=== PATIENT | male | born 1950 | race Caucasian/White ===

== ENCOUNTER 2016-12-25 07:45 | Inpatient (IN) | payer MEDICAID, MEDICARE, OTHER ==
[2016-12-25] VITALS (11 sets, daily range): BP systolic 106–143; BP diastolic 64–92
[~2016-12-25] VITALS: Ht 175.3 cm; Wt 75.3 kg
[~2016-12-25 07:45] MED LIST: ATOR20TA PO; DIPH25CA83 PO; ESCI20TA37 PO; FOLI1TAB16 PO; FURO40TA5 PO; GABA-534 PO; METO-302 PO; TAMS0.4C34 PO; WARF5TAB8 PO
[2016-12-25] MEDS ORDERED: METOPROLOL TARTRATE 5 MG/5 ML VIAL IVP ONE ×4 (08:00→09:20)
[2016-12-25] MEDS ORDERED: IV NORMAL SALINE 1000 ML BAG IV ONE (08:00)
[2016-12-25 08:23] LABS: EOSINOPHILS # (AUTO) 0.1 K/uL (0.0-0.7); EOSINOPHILS % (AUTO) 0.9 % (0.0-7.0); HEMATOCRIT 26.4 % (40-50); HEMOGLOBIN 8.8 G/DL (14.0-18.0); LYMPHOCYTES % (AUTO) 10.6 % (20.5-51.5); MEAN CORPUSCULAR HEMOGLOBIN 34.4 UUG (27.0-31.0); MEAN CORPUSCULAR HGB CONC 33 g/dL (32.0-37.0); MEAN CORPUSCULAR VOLUME 103.7 FL (82.0-92.0); MONOCYTES # (AUTO) 0.5 K/UL (0.1-1.30); MONOCYTES % (AUTO) 5.4 % (0.0-11.0); NEUTROPHILS # (AUTO) 7.7 K/UL (1.8-8.9); NEUTROPHILS % (AUTO) 83.1 % (38.5-71.5); PLATELET COUNT (AUTO) 158 K/UL (150-450); RED BLOOD CELL COUNT(AUTO) 2.55 MIL/UL (4.7-6.1); RED CELL DISTRIBUTION WIDTH 19.6 % (11.5-14.5); WHITE BLOOD COUNT (AUTO) 9.3 K/UL (4.0-11.2)
--- NOTE | 2016-12-25 08:30 | NUR ---
Pt and his partner who is at bedside refused I&O cath for urine specimen, pt attempted to void in urinal but was unable at this time.
--- NOTE | 2016-12-25 08:30 | NUR ---
PT AND PARTNER UNABLE TO REMEMBER MEDICATIONS AND DOSAGES. PARTNER STATES HE WILL CALL BACK LATER WITH MED LIST.
[2016-12-25 08:36] LABS: CALCIUM 8.6 mg/dL (8.5-10.1); POTASSIUM 4.1 mmol/L (3.5-5.1)
[2016-12-25 08:46] LABS: TROPONIN I 0.019 ng/mL (0.00-0.056)
[2016-12-25 08:51] LABS: LACTIC ACID 1.3 mmol/L (0.4-2.0)
[2016-12-25 08:53] LABS: ALBUMIN 1.8 g/dL (3.4-5.0); BILIRUBIN,DIRECT 0.6 mg/dL (0.0-0.2); BILIRUBIN,TOTAL 0.8 mg/dL (0.2-1.0); TOTAL PROTEIN, SERUM 6.8 g/dL (6.4-8.2)
[2016-12-25 09:00] LABS: CREATININE 1.5 mg/dL (0.6-1.3)
[2016-12-25] MEDS ORDERED: PANTOPRAZOLE SODIUM 40 MG VIAL IV ONE (09:15)
[2016-12-25] MEDS ORDERED: NOREPINEPHRINE BITARTRATE 8 MG in IV DEXTROSE 5% 250 ML IV ONE (09:15)
[2016-12-25] MEDS ORDERED: PANTOPRAZOLE SODIUM 40 MG VIAL ONE (09:19)
[2016-12-25] MEDS ORDERED: AMIODARONE HCL IV 900 MG in IV DEXTROSE 5% 482 ML IV PRN (10:00)
[2016-12-25] MEDS ORDERED: ACETAMINOPHEN 325 MG TABLET PO PRN (10:00)
[2016-12-25] MEDS ORDERED: METOPROLOL TARTRATE 5 MG/5 ML VIAL IVP PRN (10:00)
[2016-12-25] MEDS ORDERED: Z GUARD REMEDY PASTE 57 GM TUBE TOP PRN (10:00)
--- NOTE | 2016-12-25 10:00 | NUR ---
Per Dr Romero she spoke with Betzy RAE for Dr Ortiz via telephone and pt may be admitted to [facility]. No [facility] beds available per charge nurse on floor, nursing wax room supervisor notified.
[2016-12-25] MEDS ORDERED: LORAZEPAM 2 MG/1 ML VIAL IV ONE ×2 (10:15→11:00)
[2016-12-25] MEDS ORDERED: LORAZEPAM 2 MG/1 ML VIAL ONE ×2 (10:26→11:08)
--- NOTE | 2016-12-25 10:40 | NUR ---
Per Dr Romero pt now to be admitted to CCU, report given to Stacey RYAN via telephone.
[2016-12-25] MEDS ORDERED: AMIODARONE HCL IV 150 MG in IV DEXTROSE 5% 100 ML IV ONE ×4 (11:00)
--- NOTE | 2016-12-25 11:26 | NUR ---
Pt trans to CCU with ACLS guidelines in place.
[2016-12-25] MEDS ORDERED: DIGOXIN 500 MCG/2 ML AMP IV ONE (12:45)
--- NOTE | 2016-12-25 13:14 | NUR ---
Dr. Mcknight in the unit to see patient, full report given orders to dcd amiodarone diana received.
[2016-12-25] MEDS: Z GUARD REMEDY PASTE 57 GM TUBE TOP SCH ×2 (13:21→21:00)
[2016-12-25] MEDS ORDERED: FUROSEMIDE 40 MG TABLET PO SCH (17:00)
[2016-12-25] MEDS: LEVALBUTEROL HCL NEB 0.63 MG/3 ML NEBU NEB SCH (19:30)
[2016-12-25] MEDS: DIGOXIN 500 MCG/2 ML AMP IV SCH (19:48)
[2016-12-25] MEDS ORDERED: VANCOMYCIN IV 1 G in PREMIXED 0 EACH IV ONE (20:25)
[2016-12-25] MEDS ORDERED: ACETAMINOPHEN 650 MG SUPP.RECT RC PRN (20:30)
[2016-12-25] MEDS ORDERED: ATORVASTATIN 20 MG TABLET PO SCH (21:00)
[2016-12-25] MEDS ORDERED: Z GUARD REMEDY PASTE 57 GM TUBE TOP SCH (21:00)
[2016-12-25] MEDS: FUROSEMIDE 20 MG/2 ML VIAL IV SCH (21:00)
[2016-12-25] MEDS: PIPERACILLIN/TAZOBACTAM/D5W 2.25 G in PREMIXED 1 EACH IV SCH (21:25)
[2016-12-25] MEDS ORDERED: PIPERACILLIN/TAZO 2.25 GM VIAL ONE (21:40)
[2016-12-25] MEDS ORDERED: VANCOMYCIN IV 200 ML ONE (21:40)
[2016-12-25] MEDS: IV NORMAL SALINE 250 ML IV PRN (22:00)
[2016-12-25] MEDS: MORPHINE SULFATE 2 MG/1 ML DISP.SYRIN IV PRN (23:19)
[2016-12-25 23:30] LABS: *BILIRUBIN,URIN NEGATIVE (NEGATIVE); *BLOOD, URINE 1+ (NEGATIVE); *CLARITY,URINE CLEAR (CLEAR); *COLOR,URINE YELLOW (YELLOW); *KETONES,URINE NEGATIVE (NEGATIVE); *PROTEIN,URINE 1+ (NEGATIVE); *UROBILINOGEN,URINE 0.2 E.U./dl (NORMAL); LEUKOCYTE ESTERASE ,URINE NEGATIVE (NEGATIVE); NITRITE, URINE NEGATIVE (NEGATIVE); UGLUCOSE NEGATIVE (NEGATIVE)
[2016-12-25 23:40] LABS: BACTERIA,URINE FEW /HPF (NONE SEEN); SPERM,URINE MODERATE /HPF (NONE SEEN); SQUAMOUS EPITHELIAL CELL,UR MODERATE /HPF (NONE SEEN)
[2016-12-26] VITALS (24 sets, daily range): BP systolic 98–192; BP diastolic 61–94
[2016-12-26] MEDS: LEVALBUTEROL HCL NEB 0.63 MG/3 ML NEBU NEB SCH ×4 (00:39→19:19)
[2016-12-26] MEDS: DIGOXIN 500 MCG/2 ML AMP IV SCH (01:08)
[2016-12-26] MEDS ORDERED: LORAZEPAM 2 MG/1 ML VIAL IV ONE (01:30)
--- NOTE | 2016-12-26 01:30 | NUR ---
Per Dr. Ortiz, "use sedatives only when needed." Patient is much more awake than start of shift under Dr Ortiz's assessment, and increasingly agitated. Reorientation and relaxation techniques provided, however patient continues to be very agitated and restless. Patient continues to yell and scream, very uncooperative, unable to calm down. MD security control room officer notified, orders received and implemented. Will continue to monitor.
[2016-12-26] MEDS: PIPERACILLIN/TAZOBACTAM/D5W 2.25 G in PREMIXED 1 EACH IV SCH ×2 (02:54→09:42)
[2016-12-26 05:23] LABS: EOSINOPHILS # (AUTO) 0.1 K/uL (0.0-0.7); EOSINOPHILS % (AUTO) 1.6 % (0.0-7.0); HEMATOCRIT 25.9 % (40-50); HEMOGLOBIN 8.5 G/DL (14.0-18.0); LYMPHOCYTES # (AUTO) 0.9 K/UL (0.8-4.8); LYMPHOCYTES % (AUTO) 9.7 % (20.5-51.5); MEAN CORPUSCULAR HEMOGLOBIN 33.8 UUG (27.0-31.0); MEAN CORPUSCULAR HGB CONC 33 g/dL (32.0-37.0); MEAN CORPUSCULAR VOLUME 102.7 FL (82.0-92.0); MONOCYTES # (AUTO) 0.4 K/UL (0.1-1.30); MONOCYTES % (AUTO) 3.9 % (0.0-11.0); NEUTROPHILS # (AUTO) 7.6 K/UL (1.8-8.9); NEUTROPHILS % (AUTO) 84.8 % (38.5-71.5); PLATELET COUNT (AUTO) 189 K/UL (150-450); RED BLOOD CELL COUNT(AUTO) 2.52 MIL/UL (4.7-6.1); RED CELL DISTRIBUTION WIDTH 18.8 % (11.5-14.5)
[2016-12-26 05:23] LABS: *OCCULT BLOOD STOOL NEGATIVE (NEGATIVE)
[2016-12-26 05:25] LABS: ALBUMIN 1.7 g/dL (3.4-5.0); BILIRUBIN,TOTAL 0.7 mg/dL (0.2-1.0); CALCIUM 8.6 mg/dL (8.5-10.1); MAGNESIUM 1.8 mg/dL (1.8-2.4); PHOSPHOROUS 4.2 mg/dL (2.5-4.9); POTASSIUM 4.3 mmol/L (3.5-5.1); TOTAL PROTEIN, SERUM 6.6 g/dL (6.4-8.2)
[2016-12-26 05:37] LABS: CREATININE 1.4 mg/dL (0.6-1.3)
[2016-12-26 05:39] LABS: THYROID STIMULATING HORMONE 5.628 mIU/mL (0.358-3.740)
[2016-12-26] MEDS: IV NORMAL SALINE 250 ML IV PRN (06:41)
[2016-12-26] MEDS ORDERED: PANTOPRAZOLE SODIUM 40 MG TABLET.DR PO SCH (07:00)
--- NOTE | 2016-12-26 07:30 | NUR ---
RECIEVED PT LYING IN BED, VERY CONFUSE AND AGITATED. SPEECH IS CLEAR, FOLLOWS COMMANDS BUT NOT COMBATIVE. COLOR IS PALE. HR STILL AFIB BUT MOSTLY IN CONTROLLED RATE. MIDLINE IV ACCESS INTACT ON THE RIGHT UPPER ARM.
[2016-12-26] MEDS ORDERED: GABAPENTIN 300 MG CAPSULE PO SCH (09:00)
[2016-12-26] MEDS ORDERED: PANTOPRAZOLE SODIUM 40 MG VIAL IV SCH (09:00)
[2016-12-26] MEDS ORDERED: DIGOXIN 500 MCG/2 ML AMP IV SCH (09:00)
[2016-12-26] MEDS ORDERED: FOLIC ACID 1 MG TABLET PO SCH (09:00)
[2016-12-26] MEDS ORDERED: WARFARIN SODIUM 5 MG TABLET PO SCH (09:00)
[2016-12-26] MEDS ORDERED: TAMSULOSIN HCL 0.4 MG CAP.SR.24H PO SCH (09:00)
[2016-12-26] MEDS ORDERED: METOPROLOL SUCCINATE XL 25 MG TAB.SR.24H PO SCH (09:00)
[2016-12-26] MEDS ORDERED: ESCITALOPRAM OXALATE 10 MG TABLET PO SCH ×2 (09:00)
[2016-12-26] MEDS: FUROSEMIDE 20 MG/2 ML VIAL IV SCH ×2 (09:37→21:05)
[2016-12-26] MEDS: Z GUARD REMEDY PASTE 57 GM TUBE TOP SCH ×2 (09:40→20:56)
--- NOTE | 2016-12-26 10:00 | NUR ---
PT DOWNGRADED TO TELEMETRY BY DR AVILEZ. SLEEPING ON AND OFF. PHYSICAL THERAPY AT THE BEDSIDE DONE WITH POOR COOPERATION BY THE PT.
--- NOTE | 2016-12-26 10:07 | NUR ---
Clinical Pharmacy Note: Vancomycin Dosing per Pharmacy Subjective: Vancomycin IV to start on this 66 yo male patient for infected pressure sores Patient received vancomycin 1gm IVPB x1 last night at 2300. Objective: ht 5' 9'' wt 172 lb BUN 25/Scr 1.4 WBC 9 Temperature 97.4 Assessment/Plan: Will start vancomycin 1250mg IVPB Q19hr for a predicted vancomycin steady state trough level of 17 mcg/ml. First azul is due today at 1600. Will draw a vancomycin trough level prior to the 4th dose of vancomycin (not ordered yet). Will monitor renal function and adjust vancomycin dose, if needed, should renal function change significantly. Will follow daily.
--- NOTE | 2016-12-26 10:15 | NUR ---
PT C/O GENERALIZED PAIN AND SCREAMING. MEDICATED WITH MORPHINE 2MG SLOW IVP WITH EFFECTIVE RESULT.
[2016-12-26] MEDS: MORPHINE SULFATE 2 MG/1 ML DISP.SYRIN IV PRN ×2 (11:20→17:21)
--- NOTE | 2016-12-26 12:30 | NUR ---
PT TRANSFERRED TO 2ND FLOOR VIA BED. CONDITION IS STABLE.
[2016-12-26] MEDS ORDERED: PIPERACILLIN/TAZOBACTAM/D5W 3.375 G in PREMIXED 1 EACH IV SCH (14:00)
--- NOTE | 2016-12-26 14:00 | NUR ---
REPORT GIVEN TO LEON RYAN FRON 2ND FLOOR.
--- NOTE | 2016-12-26 14:45 | NUR ---
RECEIVED PATIENT FROM THE CCU BY BED 66 YEARS OLD MALE TO ROOM 216 WITH DX OF RAPID HEART RATE TELE READING IS ATRIAL FIB AT 95.PATIENT IS ALERT AND AWARE LOOKS PALE ON O2 AT 2L/M BY NASAL CANULA WITH NO SOB AT THIS TIME.THE ENTIRE RIGHT ARM IS SWOLLEN AND HE STATED THAT HE IS NOT ABLE TO MOVE IT FOR MORE THAN A WEEK NOW.HE HAS A MID LINE IN HIS RIGHT UPPER ARM WITH ZOSYN INFUSING FROM ICU WITH NO ADVERSE OR ALLERGIC REACTIONS AT THIS TIME.HE HAS A BRAGA CATH TO GRAVITY DRAINAGE WITH BEATRIZ COLORED URINE.MULTIPLE SKIN ULCERS/EXCORIATIONS POSTERIOR BOTH BUTTOCKS SACRAL WITH MEPILEX IN PLACE ETC PATIENT STATED THAT HE WAS HAVING DIARRHEA FOR SO MANY DAYS.DVT PUMPS PLACED BLE AND ELEVATED ON THE PILLOW.PATIENT MADE COMFORTABLE AND WILL CONTINUE TO OBSERVE.
[2016-12-26] MEDS ORDERED: VANCOMYCIN IV 1,250 MG in IV DEXTROSE 5% 500 ML IV SCH (16:00)
--- NOTE | 2016-12-26 16:29 | NUR ---
LEAH GIVEN IVPB ORDERED WITH NO ADVERSE OR ALLERGIC REACTIONS AT THIS TIME.
--- NOTE | 2016-12-26 18:35 | NUR ---
WHILE THE ASSIGNED ROOF SERVICE TECHNICIAN WAS CHECKING PATIENT TO ENSURE THAT HE WAS CLEAN SHE NOTED THAT PATIENT HAD RECTAL BLEEDING.SO I CHECKED PATIENT AND NOTED LARGE AMOUNT OF THANH RED/DARK CLOTTED CONJILLED BLOOD IN EXCESS OF 200 ML FROM THE RECTUM BORIS CARE DONE AND DR MONROE NOTIFIED AND HE STATED TO TRANSFER PATIENT BACK TO ICU/CCU DISTILLING DEPARTMENT SUPERVISOR NOTIFIED.
--- NOTE | 2016-12-26 19:40 | NUR ---
RECEIVED LAYING ON BED SLEEPING CAN BE AWAKEN BUT EASILY FALLS BACK TO SLEEP. PATIENT NOTED TO BE PALE AND WEAK, DOES NOT ANSWER QUESTIONS WHEN ASKED. NEEDS ATTENDED. NO BLEEDING NOTED AT THIS TIME. PREPARED FOR TRANSFER TO CCU. V/S TAKEN AND RECORDED. F/C INTACT, PATENT DRAINING WELL. CALL LIGHT WITHIN REACH. WILL MONITOR
--- NOTE | 2016-12-26 19:55 | NUR ---
GAVE REPORT TO CCU RN. PATIENT TRANSFERRED TO CCU. ACCOMPANIED BY CCU RN, RESPIRATORY THERAPIST.
--- NOTE | 2016-12-26 20:00 | NUR ---
ATTEMPTED TO CALL SIGNIFICANT OTHER Janae CARRENO, NO ANSWER, LEFT VOICEMAIL
--- NOTE | 2016-12-26 20:10 | NUR ---
Assisted courier driver with transferring pt back to CCU Room 2 via bed, accompanied by RT. multiple drum sander showing controlled AFib rate 90's and O2 3L/min nasal cannula in use. Routine CCU care rendered. Please see CCU flowsheet for full assessment and clinical data.
--- NOTE | 2016-12-26 20:30 | NUR ---
Dr. Ortiz notified of pt transfer, new orders received. Will do stat CBC and start pt on Protonix drip.
--- NOTE | 2016-12-26 20:40 | NUR ---
CALLED MR. CARRENO (SIGNIFICANT OTHER), STILL NO ANSWER, LEFT VOICEMAIL. INFORMED CCU RN
[2016-12-26 20:50] LABS: BASOPHILS % (AUTO) 0.3 % (0.0-2.0); EOSINOPHILS # (AUTO) 0.1 K/uL (0.0-0.7); EOSINOPHILS % (AUTO) 1.4 % (0.0-7.0); HEMATOCRIT 24.7 % (40-50); HEMOGLOBIN 7.9 G/DL (14.0-18.0); LYMPHOCYTES # (AUTO) 1.1 K/UL (0.8-4.8); MEAN CORPUSCULAR HEMOGLOBIN 33.1 UUG (27.0-31.0); MEAN CORPUSCULAR HGB CONC 32 g/dL (32.0-37.0); MEAN CORPUSCULAR VOLUME 103.5 FL (82.0-92.0); MONOCYTES # (AUTO) 0.3 K/UL (0.1-1.30); MONOCYTES % (AUTO) 2.6 % (0.0-11.0); NEUTROPHILS # (AUTO) 9.2 K/UL (1.8-8.9); NEUTROPHILS % (AUTO) 85.7 % (38.5-71.5); PLATELET COUNT (AUTO) 198 K/UL (150-450); RED CELL DISTRIBUTION WIDTH 19.3 % (11.5-14.5); WHITE BLOOD COUNT (AUTO) 10.7 K/UL (4.0-11.2)
[2016-12-26] MEDS: PANTOPRAZOLE SODIUM IV 80 MG in IV DEXTROSE 5% 500 ML IV SCH (20:56)
[2016-12-26] MEDS: LACTOBACILLUS RHAMNOSUS GG 1 EACH CAPSULE PO SCH (21:00)
--- NOTE | 2016-12-26 21:00 | NUR ---
Called pt's significant other Tanner Richards on 2 different numbers listed on chart; unable to reach him, left message to call back.
[2016-12-26 21:18] LABS: RED BLOOD CELL COUNT(AUTO) 2.39 MIL/UL (4.7-6.1)
--- NOTE | 2016-12-26 21:30 | NUR ---
Dr. Ortiz's exchange called to report CBC result, will wait for return call.
--- NOTE | 2016-12-26 22:00 | NUR ---
Another attempt to call significant other again with no result, message left again.
--- NOTE | 2016-12-26 22:30 | NUR ---
MD returned call with orders to transfuse 2 units PRBCs as soon as available. GI consult was called in by .
[2016-12-26] MEDS ORDERED: FUROSEMIDE 20 MG/2 ML VIAL IV PRN (22:45)
--- NOTE | 2016-12-26 22:45 | NUR ---
Further attempts to call S.O with good result. Telephone consent obtained from Tanner Richards for blood transfusion; also condition update given; appreciative of info.
[2016-12-26] MEDS: ONDANSETRON 4 MG/2 ML VIAL IV PRN (23:24)
[2016-12-27] VITALS (67 sets, daily range): BP systolic 73–135; BP diastolic 23–100
[2016-12-27] MEDS: MORPHINE SULFATE 2 MG/1 ML DISP.SYRIN IV PRN ×4 (00:01→19:51)
--- NOTE | 2016-12-27 00:25 | NUR ---
Blood transfusion of packed cells initiated, in progress. Please see Transfusion Record. Another large bloody stools with clots. Total bath/skin care rendered, pt fairly tolerated procedure well. Was medicated with Zofran for nausea and Morphine for generalized pain prior to this nursing care.
[2016-12-27] MEDS: LEVALBUTEROL HCL NEB 0.63 MG/3 ML NEBU NEB SCH ×4 (01:14→18:57)
--- NOTE | 2016-12-27 02:30 | NUR ---
First unit PRBCs completed and IV Lasix given per order. Followed by second unit PRBCs. No transfusion reactions noted thus far. Noted pt having periods of bloody stools with clots. Kept clean and comfortable.
[2016-12-27] MEDS ORDERED: FUROSEMIDE 20 MG/2 ML VIAL ONE (02:41)
--- NOTE | 2016-12-27 04:30 | NUR ---
Due to [employer] downtime, second unit PRBCs #[id number] unable to be scanned but was transfused from [id number] without any adverse effects. Was unable to chart such transfusion on transfusion record.
[2016-12-27] MEDS: ONDANSETRON 4 MG/2 ML VIAL IV PRN ×2 (05:05→23:21)
[2016-12-27] MEDS ORDERED: IV NS 1000 ML 1,000 ML IV PRN (05:15)
[2016-12-27] MEDS ORDERED: LORAZEPAM 2 MG/1 ML VIAL IV ONE (05:15)
--- NOTE | 2016-12-27 05:15 | NUR ---
Dr. Naga Pandey notified of pt's persistent hypotension, rapid Afib up to 160's and severe agitation, new orders noted and carried out. MD did not want vasopressors.
[2016-12-27 05:31] LABS: BILIRUBIN,TOTAL 1.6 mg/dL (0.2-1.0); CALCIUM 8.1 mg/dL (8.5-10.1); DIGOXIN 1.6 ng/mL (0.9-2.0); MAGNESIUM 1.6 mg/dL (1.8-2.4); PHOSPHOROUS 4.2 mg/dL (2.5-4.9); POTASSIUM 4.2 mmol/L (3.5-5.1); TOTAL PROTEIN, SERUM 5.7 g/dL (6.4-8.2)
[2016-12-27 05:40] LABS: ALBUMIN 1.5 g/dL (3.4-5.0); CREATININE 1.6 mg/dL (0.6-1.3)
[2016-12-27 05:55] LABS: EOSINOPHILS # (AUTO) 0.2 K/uL (0.0-0.7); EOSINOPHILS % (AUTO) 1.5 % (0.0-7.0); HEMATOCRIT 26.5 % (40-50); LYMPHOCYTES # (AUTO) 1.5 K/UL (0.8-4.8); LYMPHOCYTES % (AUTO) 11.5 % (20.5-51.5); MEAN CORPUSCULAR HEMOGLOBIN 32.9 UUG (27.0-31.0); MEAN CORPUSCULAR HGB CONC 34 g/dL (32.0-37.0); MEAN CORPUSCULAR VOLUME 97.7 FL (82.0-92.0); MONOCYTES # (AUTO) 0.5 K/UL (0.1-1.30); MONOCYTES % (AUTO) 4.1 % (0.0-11.0); NEUTROPHILS # (AUTO) 10.4 K/UL (1.8-8.9); NEUTROPHILS % (AUTO) 82.9 % (38.5-71.5); PLATELET COUNT (AUTO) 224 K/UL (150-450); RED BLOOD CELL COUNT(AUTO) 2.71 MIL/UL (4.7-6.1); RED CELL DISTRIBUTION WIDTH 19.5 % (11.5-14.5); WHITE BLOOD COUNT (AUTO) 12.6 K/UL (4.0-11.2)
[2016-12-27 05:57] LABS: HEMOGLOBIN 8.9 G/DL (14.0-18.0)
[2016-12-27 06:10] LABS: EOSINOPHILS % (MANUAL) 2 % (0-8); LYMPHOCYTES % (MANUAL) 12 % (20-40); MONOCYTES % (MANUAL) 7 % (2-10); NEUTROPHILS % (MANUAL) 79 % (42-75)
[2016-12-27 06:11] LABS: ANISOCYTOSIS 2+; PLATELET ESTIMATE ADEQUATE
[2016-12-27] MEDS: PANTOPRAZOLE SODIUM IV 80 MG in IV DEXTROSE 5% 500 ML IV SCH ×2 (06:41→18:31)
--- NOTE | 2016-12-27 07:10 | NUR ---
Dr. Cisneros notified of pt's persistent rapid AFib rate and hypotension. New orders noted. Pt to be started on Levophed drip to maintain MAP >=65.
[2016-12-27] MEDS ORDERED: NOREPINEPHRINE BITARTRATE 8 MG in IV DEXTROSE 5% 500 ML IV PRN (07:30)
[2016-12-27] MEDS ORDERED: ETOMIDATE 20 MG/10 ML VIAL MC ONE (07:45)
[2016-12-27] MEDS ORDERED: PROPOFOL 200 MG/20 ML BOTTLE IV ONE (07:45)
[2016-12-27] MEDS ORDERED: SEVOFLURANE 250 ML BOTTLE IH ONE (07:45)
[2016-12-27] MEDS ORDERED: IV NORMAL SALINE 1000 ML BAG IV ONE (07:46)
--- NOTE | 2016-12-27 08:00 | NUR ---
pt started on Levophed to support BP.
[2016-12-27] MEDS ORDERED: GOLYTELY 4000 ML BOTTLE PO ONE (08:15)
[2016-12-27] MEDS: LACTOBACILLUS RHAMNOSUS GG 1 EACH CAPSULE PO SCH ×2 (08:17→20:08)
--- NOTE | 2016-12-27 08:30 | NUR ---
Report received.Pt remains awake,alert,confused,agitated.uncontrolled Afib on monitor with rate 155-165.BP remains in 70s.Noted with bleeding from rectum.Bath was given,apply Zguard.Will continue to monitor.
--- NOTE | 2016-12-27 08:44 | NUR ---
Seen,examined by ,GI consult.New orders received.
[2016-12-27] MEDS: DIGOXIN 125 MCG TABLET PO SCH (09:00)
[2016-12-27] MEDS ORDERED: MAGNESIUM SULFATE/D5W 100 ML IV SCH (09:15)
--- NOTE | 2016-12-27 11:00 | NUR ---
1st unit of blood is transfusing.Pt tolerated well.Remains in Afib with rate of 125-130.remains on Levophed at 5mcg/min to support BP.Will continue to monitor,
[2016-12-27 11:06] LABS: HCV AB <0.1 s/co ratio (0.0-0.9); HEPATITIS A AB, IgM Negative (Negative); HEPATITIS A AB, TOTAL Positive (Negative); HEPATITIS B CORE AB, IgM Negative (Negative); HEPATITIS B CORE AB, TOTAL Positive (Negative); HEPATITIS B SURFACE AB Reactive (.); HEPATITIS B SURFACE AG Negative (Negative)
[2016-12-27] MEDS: Z GUARD REMEDY PASTE 57 GM TUBE TOP SCH ×2 (11:38→20:08)
[2016-12-27] MEDS: FUROSEMIDE 20 MG/2 ML VIAL IV SCH ×2 (11:46→22:37)
--- NOTE | 2016-12-27 14:26 | NUR ---
WOUND CARE CONSULT: PT PRESENTS WITH MULTIPLE SKIN ISSUES INCLUDING SACRAL ULCER, STAGE II, EXTENDING TO BUTTOCKS, EXCORIATION TO PERIANAL AND PERINEAL AREAS, AND DEEP TISSUE INJURIES TO RT FOOT (INTACT),PRESENT ON ADMISSION. PT NOTED TO HAVE BLOODY DRAINAGE IN RECTAL TUBE. BRUISING NOTED WITH DRY ABRASIONS TO LOWER LEGS. BRUISING NOTED TO PENIS AND ARMS, PRESENT ON ADMISSION. ALL SKIN PROTECTION MEASURES IN PLACE. PT ON FIRST STEP MATTRESS. DISCUSSED WOUND AND SKIN RECOMMENDATIONS WITH NURSING STAFF. IN AGREEMENT WITH PLAN OF CARE. Addendum: 12/27/16 at 1430 by CEDRICK CABRAL RN Amended: Links added.
--- NOTE | 2016-12-27 15:30 | NUR ---
Second unit of PRBC completed without any adverse reaction.Levophed gtt is off.Pt pulled out NGT.Report given to OR nurses.Pt transfered to OR .
[2016-12-27] MEDS ORDERED: SUCCINYLCHOLINE CHLORIDE 200 MG/10 ML VIAL ONE (15:55)
[2016-12-27] MEDS ORDERED: ROCURONIUM BROMIDE 50 MG/5 ML VIAL ONE (15:55)
[2016-12-27 16:25] LABS: HEMOGLOBIN 8.8 G/DL (14.0-18.0)
--- NOTE | 2016-12-27 18:00 | NUR ---
Pt received from recovery.Remains awake,alert,confused.Denies pain,discomfort.No SOB noted.No active bleeding noted from rectum.Seen,examined by with new orders.
[2016-12-27] MEDS ORDERED: FUROSEMIDE 20 MG/2 ML VIAL IV ONE (19:00)
[2016-12-27] MEDS: METOPROLOL TARTRATE 25 MG TABLET PO SCH ×2 (19:50→21:00)
--- NOTE | 2016-12-27 20:00 | NUR ---
S/P EGD and colonoscopy today. No obvious GI bleeding noted thus far. Awake, disoriented with periods of restlessness. Safety and fall precautions noted at all times. Off vasopressor this pm and noted VS stable. Remains AFib with rate uncontrolled at times. Please see CCU flowsheet for full assessment and clinical data.
--- NOTE | 2016-12-27 21:00 | NUR ---
Lopressor 25 mg given at 1950 thus 2100 dose held due to med ordered PO q 12.
[2016-12-28] VITALS (13 sets, daily range): BP systolic 89–137; BP diastolic 45–85
[2016-12-28] MEDS: MORPHINE SULFATE 2 MG/1 ML DISP.SYRIN IV PRN ×4 (00:29→20:35)
[2016-12-28] MEDS: LEVALBUTEROL HCL NEB 0.63 MG/3 ML NEBU NEB SCH ×4 (01:26→19:30)
[2016-12-28] MEDS: PANTOPRAZOLE SODIUM IV 80 MG in IV DEXTROSE 5% 500 ML IV SCH (03:58)
--- NOTE | 2016-12-28 05:06 | NUR ---
Continues to diurese large amounts of urine from IV Lasix doses received this shift. Morphine IV given q 4hr intervals for max comfort(Please see EMar). At times still feels "cramps and upset tummy" and nausea, relieved with Zofran. Tolerates well clear liquids, loves jello. No rectal bleeding noted; no BM noted. Protonix continues to infuse via RUE midline. Remains disoriented, yelling and calling out for Samy at times but pt not aggressive/combative. Reality-orientation done frequently. Able to sleep at periodic intervals.
[2016-12-28 05:33] LABS: CALCIUM 8.4 mg/dL (8.5-10.1); MAGNESIUM 1.5 mg/dL (1.8-2.4); POTASSIUM 3.6 mmol/L (3.5-5.1)
[2016-12-28 05:36] LABS: CREATININE 1.5 mg/dL (0.6-1.3)
[2016-12-28 06:09] LABS: EOSINOPHILS # (AUTO) 0.2 K/uL (0.0-0.7); EOSINOPHILS % (AUTO) 1.8 % (0.0-7.0); HEMATOCRIT 25.5 % (40-50); HEMOGLOBIN 8.9 G/DL (14.0-18.0); LYMPHOCYTES # (AUTO) 1.8 K/UL (0.8-4.8); LYMPHOCYTES % (AUTO) 14.5 % (20.5-51.5); MEAN CORPUSCULAR HEMOGLOBIN 32.1 UUG (27.0-31.0); MEAN CORPUSCULAR HGB CONC 35 g/dL (32.0-37.0); MEAN CORPUSCULAR VOLUME 91.4 FL (82.0-92.0); MONOCYTES # (AUTO) 0.7 K/UL (0.1-1.30); MONOCYTES % (AUTO) 5.7 % (0.0-11.0); NEUTROPHILS # (AUTO) 9.9 K/UL (1.8-8.9); PLATELET COUNT (AUTO) 217 K/UL (150-450); RED BLOOD CELL COUNT(AUTO) 2.79 MIL/UL (4.7-6.1); RED CELL DISTRIBUTION WIDTH 20.3 % (11.5-14.5); WHITE BLOOD COUNT (AUTO) 12.6 K/UL (4.0-11.2)
[2016-12-28] MEDS: FUROSEMIDE 20 MG/2 ML VIAL IV SCH ×2 (08:09→20:33)
[2016-12-28] MEDS: Z GUARD REMEDY PASTE 57 GM TUBE TOP SCH ×2 (08:10→20:36)
[2016-12-28] MEDS: LACTOBACILLUS RHAMNOSUS GG 1 EACH CAPSULE PO SCH ×2 (08:10→20:33)
[2016-12-28] MEDS: METOPROLOL TARTRATE 25 MG TABLET PO SCH ×2 (08:10→20:35)
[2016-12-28] MEDS: DIGOXIN 125 MCG TABLET PO SCH (08:10)
[2016-12-28] MEDS ORDERED: MAGNESIUM SULFATE/D5W 100 ML IV SCH (12:15)
--- NOTE | 2016-12-28 13:37 | NUR ---
Telephone report given to [place]al [place]. Patient will be taken up to room 228. AAOx4. vitals signs stable no c/of pain at this time.
--- NOTE | 2016-12-28 13:50 | NUR ---
Dr. Parekh at bedside assessing patient and updating pt's partner, Mr. Mckeon. Also at this time a call to RAJAN Carter done by Dr. Parekh.
--- NOTE | 2016-12-28 15:34 | NUR ---
DAILY NOTE RECEIVED FORM ICU IN NO ACUTE DISTRESS AROUND 1400 , VSS. ORIENTED TO ROOM AND SURROUNDINGS. WITH PARTNER AT BEDSIDE. VERBALIZES UNDERSTANDING. SITTER WITH PT. TECH IN TO DO PROCEDURE ORDERED HE REFUSED TO LET HER DO PROCEDURE. SHE WAS INSTRUCTED TO COME BACK LATER AND RETRY
--- NOTE | 2016-12-28 19:30 | NUR ---
nsg: pt received awake but confused. needs redirection. tele, afib 102-110. f/c draining clear yellow urine via gravity. on 1st step mattress. sitter at the bedside for safety.
--- NOTE | 2016-12-28 23:30 | NUR ---
nsg: pt agitated, screaming and yelling. spoke with Dr. Parekh, will not order anti anxiety, hr increasing but non sustain.
[2016-12-29 00:09] VITALS: BP 98/43
[2016-12-29 00:30] VITALS: BP 110/52
[2016-12-29] MEDS: LEVALBUTEROL HCL NEB 0.63 MG/3 ML NEBU NEB SCH ×4 (01:04→19:30)
[2016-12-29 02:24] LABS: HEPATITIS Be ANTIGEN Positive (Negative)
[2016-12-29 05:10] VITALS: BP 133/73
--- NOTE | 2016-12-29 05:17 | NUR ---
nsg: pt awake, confused, agitated, wants to leave the hospital. v/s stable. sitter at the bedside.
[2016-12-29] MEDS: FUROSEMIDE 20 MG/2 ML VIAL IV SCH ×2 (07:53→21:49)
[2016-12-29] MEDS: LACTOBACILLUS RHAMNOSUS GG 1 EACH CAPSULE PO SCH ×2 (07:54→21:49)
[2016-12-29] MEDS: DIGOXIN 125 MCG TABLET PO SCH (07:58)
[2016-12-29] MEDS: Z GUARD REMEDY PASTE 57 GM TUBE TOP SCH ×2 (07:59→21:50)
[2016-12-29] MEDS: METOPROLOL TARTRATE 25 MG TABLET PO SCH ×2 (07:59→21:50)
[2016-12-29 08:02] LABS: BASOPHILS % (AUTO) 0.2 % (0.0-2.0); EOSINOPHILS # (AUTO) 0.2 K/uL (0.0-0.7); EOSINOPHILS % (AUTO) 2.1 % (0.0-7.0); HEMATOCRIT 24.8 % (40-50); HEMOGLOBIN 8.3 G/DL (14.0-18.0); LYMPHOCYTES # (AUTO) 1.4 K/UL (0.8-4.8); LYMPHOCYTES % (AUTO) 15.9 % (20.5-51.5); MEAN CORPUSCULAR HGB CONC 33 g/dL (32.0-37.0); MEAN CORPUSCULAR VOLUME 93.3 FL (82.0-92.0); MONOCYTES # (AUTO) 0.6 K/UL (0.1-1.30); NEUTROPHILS # (AUTO) 6.6 K/UL (1.8-8.9); NEUTROPHILS % (AUTO) 74.8 % (38.5-71.5); PLATELET COUNT (AUTO) 258 K/UL (150-450); RED BLOOD CELL COUNT(AUTO) 2.66 MIL/UL (4.7-6.1); RED CELL DISTRIBUTION WIDTH 19.7 % (11.5-14.5)
[2016-12-29 08:04] LABS: WHITE BLOOD COUNT (AUTO) 8.8 K/UL (4.0-11.2)
[2016-12-29 08:29] LABS: CALCIUM 8.4 mg/dL (8.5-10.1); MAGNESIUM 1.6 mg/dL (1.8-2.4); POTASSIUM 3.5 mmol/L (3.5-5.1)
[2016-12-29 08:37] LABS: CREATININE 1.4 mg/dL (0.6-1.3)
[2016-12-29 09:48] LABS: ANISOCYTOSIS 2+
[2016-12-29] MEDS: FLUCONAZOLE 200 MG TABLET PO SCH (10:17)
[2016-12-29] MEDS: ONDANSETRON 4 MG/2 ML VIAL IV PRN (10:17)
[2016-12-29] MEDS: MORPHINE SULFATE 2 MG/1 ML DISP.SYRIN IV PRN ×2 (10:19→16:28)
[2016-12-29 11:39] VITALS: BP 100/53
[2016-12-29] MEDS: MAGNESIUM SULFATE/D5W 100 ML IV SCH ×2 (11:48→13:14)
[2016-12-29 16:17] VITALS: BP 119/56
[2016-12-29 20:00] VITALS: BP 125/62
--- NOTE | 2016-12-29 20:00 | NUR ---
PATIENT AWAKE, CONFUSED,NO ACUTE DISTRESS NOTED,SHOUTING, SCREAMING WANTS TO GET OUT OFF BED,V/S STABLE,A FIB ON MONITOR.
[2016-12-30] VITALS (13 sets, daily range): BP systolic 120–140; BP diastolic 59–77
[2016-12-30] MEDS: LEVALBUTEROL HCL NEB 0.63 MG/3 ML NEBU NEB SCH ×4 (01:30→19:17)
[2016-12-30] MEDS: MORPHINE SULFATE 2 MG/1 ML DISP.SYRIN IV PRN ×2 (02:32→20:51)
[2016-12-30 07:09] LABS: CALCIUM 8.5 mg/dL (8.5-10.1); CREATININE 1.4 mg/dL (0.6-1.3); POTASSIUM 3.4 mmol/L (3.5-5.1)
--- NOTE | 2016-12-30 07:10 | NUR ---
PATIENT RECEIVED IN ROOM RESTING ALERT AWAKE IN NO ACUTE DISTRESS. HR 99-110 A. 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 RESPIRATIONS EVEN AND UNLABORED. DVT PUMPS AND FIRST STEP MATTRESS IN PLACE. CONTINUES WITH 1:1 SITTER AT BEDSIDE FOR SAFETY.
[2016-12-30 07:47] LABS: BASOPHILS % (AUTO) 0.3 % (0.0-2.0); EOSINOPHILS # (AUTO) 0.2 K/uL (0.0-0.7); EOSINOPHILS % (AUTO) 2.3 % (0.0-7.0); HEMOGLOBIN 7.9 G/DL (14.0-18.0); LYMPHOCYTES # (AUTO) 1.8 K/UL (0.8-4.8); LYMPHOCYTES % (AUTO) 23.8 % (20.5-51.5); MEAN CORPUSCULAR HEMOGLOBIN 30.7 UUG (27.0-31.0); MEAN CORPUSCULAR HGB CONC 33 g/dL (32.0-37.0); MEAN CORPUSCULAR VOLUME 93.3 FL (82.0-92.0); MONOCYTES # (AUTO) 0.7 K/UL (0.1-1.30); MONOCYTES % (AUTO) 9.3 % (0.0-11.0); NEUTROPHILS # (AUTO) 4.8 K/UL (1.8-8.9); NEUTROPHILS % (AUTO) 64.3 % (38.5-71.5); PLATELET COUNT (AUTO) 290 K/UL (150-450); RED BLOOD CELL COUNT(AUTO) 2.57 MIL/UL (4.7-6.1); RED CELL DISTRIBUTION WIDTH 19.3 % (11.5-14.5); WHITE BLOOD COUNT (AUTO) 7.5 K/UL (4.0-11.2)
[2016-12-30] MEDS: LACTOBACILLUS RHAMNOSUS GG 1 EACH CAPSULE PO SCH ×2 (08:16→20:51)
[2016-12-30] MEDS: FLUCONAZOLE 200 MG TABLET PO SCH (08:16)
[2016-12-30] MEDS: FUROSEMIDE 20 MG/2 ML VIAL IV SCH ×2 (08:17→20:51)
[2016-12-30] MEDS: DIGOXIN 125 MCG TABLET PO SCH (08:17)
[2016-12-30] MEDS: METOPROLOL TARTRATE 25 MG TABLET PO SCH ×2 (08:17→20:52)
[2016-12-30] MEDS: Z GUARD REMEDY PASTE 57 GM TUBE TOP SCH ×2 (08:18→20:53)
[2016-12-30 09:19] LABS: ANISOCYTOSIS 2+
[2016-12-30 09:20] LABS: STOMATOCYTES 2+
[2016-12-30] MEDS ORDERED: POTASSIUM CHLORIDE 20 MEQ TAB.PRT.SR PO ONE (12:00)
--- NOTE | 2016-12-30 13:00 | NUR ---
PARTICIPATED WITH PT AND TOLERATED WELL.
--- NOTE | 2016-12-30 17:17 | NUR ---
STARTED FIRST UNIT OF PRBC.
--- NOTE | 2016-12-30 18:21 | NUR ---
OPEN AREAS BETWEEN THE LEFT 3RD AND 4TH TOES NOTED, SKIN WARM AND DRY TO TOUCH, PATIENT ABLE TO MOVE FOOT AND BLE WITH STRONG PULSES NOTED. OPEN AREA CLEANSED WITH NS, PAT DRY AND C/D DRESSING APPLIED BETWEEN THE TOES. HEELS ELEVATED ON PILLOWS. DR. ABBOTT NOTIFIED. NEW ORDERS FOR WOUND CONSULT.
--- NOTE | 2016-12-30 18:58 | NUR ---
END OF SHIFT NOTE: PATIENT IN NO ACUTE DISTRESS THROUGHOUT SHIFT. DENIED PAIN. VSS. CONTINUES WITH PRBC WITH NO A/Rs NOTED. TURNED AND REPOSITIONED EVERY 2 HOURS AND PRN. HAD X2 LOOSE BM. WOUND TX DONE ORDERED. FALL PRECAUTIONS IN PLACE. DVT PUMS AND FIRST STEP MATTRESS IN PLACE. CONTINUES WITH 1:1 SITTER AT BEDSIDE FOR SAFETY.
--- NOTE | 2016-12-30 19:10 | NUR ---
1 ST UNIT OF PRBC COMPLETED NO REACTION NOTED,V/S STABLE, CONTINUE 1:1 SITTER AT BEDSIDE FOR SAFETY ,PATIENT REMAINS CONFUSED,CALM AND COOPERATIVE.
--- NOTE | 2016-12-30 20:20 | NUR ---
STARTED 2 ND UNIT OF PRBC ,RECHECK V/S IN 15 MIN AND STABLE, NO IMMEDIATE REVERSE REACTION NOTED, CONTINUE CLOSELY MONITOR.NO ACTIVE BLEEDING ,PATIENT HAS SMALL SOFT STOOL,TURN AND REPOSITION Q 2H,ON 1 ST STEP AIR MATTRESS, DRESSING CHANGED TO COCCYX,BILATERAL HEELS FLOATED.
--- NOTE | 2016-12-30 23:30 | NUR ---
2 ND UNITS OF PRBC COMPLETED,VS STABLE ,NO REACTION ,1:1 SITTER AT BEDSIDE.PATIENT SLEPT INTERMITTENTLY, NO DISTRESS.
[2016-12-31] MEDS: LEVALBUTEROL HCL NEB 0.63 MG/3 ML NEBU NEB SCH ×3 (01:09→14:06)
[2016-12-31 04:00] VITALS: BP 139/84
[2016-12-31 07:06] LABS: BASOPHILS % (AUTO) 0.3 % (0.0-2.0); EOSINOPHILS # (AUTO) 0.2 K/uL (0.0-0.7); EOSINOPHILS % (AUTO) 2.9 % (0.0-7.0); HEMATOCRIT 31.7 % (40-50); HEMOGLOBIN 10.6 G/DL (14.0-18.0); LYMPHOCYTES # (AUTO) 1.7 K/UL (0.8-4.8); LYMPHOCYTES % (AUTO) 24.2 % (20.5-51.5); MEAN CORPUSCULAR HEMOGLOBIN 30.3 UUG (27.0-31.0); MEAN CORPUSCULAR HGB CONC 33 g/dL (32.0-37.0); MEAN CORPUSCULAR VOLUME 90.9 FL (82.0-92.0); MONOCYTES # (AUTO) 0.6 K/UL (0.1-1.30); MONOCYTES % (AUTO) 8.1 % (0.0-11.0); NEUTROPHILS # (AUTO) 4.6 K/UL (1.8-8.9); NEUTROPHILS % (AUTO) 64.5 % (38.5-71.5); PLATELET COUNT (AUTO) 289 K/UL (150-450); RED BLOOD CELL COUNT(AUTO) 3.49 MIL/UL (4.7-6.1); RED CELL DISTRIBUTION WIDTH 19.6 % (11.5-14.5); WHITE BLOOD COUNT (AUTO) 7.1 K/UL (4.0-11.2)
--- NOTE | 2016-12-31 07:15 | NUR ---
PATIENT RECEIVED IN ROOM ALERT, AWAKE IN NO ACUTE DISTRESS. RESPIRATIONS EVEN AND UNLABORED. MIDLINE INTACT AND PATENT. BRAGA CATH WITH URINE YELLOW AND CLEAR. HEELS FLOATED ON PILLOWS. DVT PUMPS AND FIRST STEP MATTRESS IN PLACE. CONTINUOS WITH 1:1 SITTER AT BEDSIDE FOR SAFETY.
[2016-12-31 07:17] LABS: CALCIUM 9.1 mg/dL (8.5-10.1); POTASSIUM 3.7 mmol/L (3.5-5.1)
[2016-12-31 07:24] LABS: CREATININE 1.5 mg/dL (0.6-1.3)
[2016-12-31] MEDS: FUROSEMIDE 20 MG/2 ML VIAL IV SCH (08:31)
[2016-12-31] MEDS: METOPROLOL TARTRATE 25 MG TABLET PO SCH (08:32)
[2016-12-31] MEDS: DIGOXIN 125 MCG TABLET PO SCH (08:33)
[2016-12-31] MEDS: LACTOBACILLUS RHAMNOSUS GG 1 EACH CAPSULE PO SCH (08:33)
[2016-12-31] MEDS: FLUCONAZOLE 200 MG TABLET PO SCH (08:33)
[2016-12-31] MEDS: Z GUARD REMEDY PASTE 57 GM TUBE TOP SCH (08:51)
[2016-12-31 11:41] VITALS: BP 131/76
--- NOTE | 2016-12-31 16:57 | NUR ---
DISCHARGING PATIENT TO [facility] IN A STABLE CONDITION. SBAR REPORT GIVEN TO HARRIET RYAN AT THE [facility]. VSS. DENIED PAIN. LABS STABLE. DISCHARGE INSTRUCTIONS PROVIDED. LIST OF BELONGINGS SIGNED. BRAGA CATH REMOVED AND PATIENT VOIDED. IV REMOVED, PRESSURE APPLIED AND HEMOSTASIS ACHIEVED. PATIENT LEAVING VIA AMBULANCE.
== END 2016-12-31 16:50 | DRG 393 ==
LOC: ER 07:45 → CCU 11:09 → TELE 12-26 14:35 → CCU 12-26 19:55 → TELE 12-28 14:00 → MED 12-30 15:51
PROVIDERS: ADMIT Internal Medicine; ATTEND Internal Medicine
PROC: 05H533Z Insertion of Infusion Device into Right Subclavian Vein, Percutaneous Approach (ICD-10-PCS; 2016-12-25)
PROC: 0DB68ZX Excision of Stomach, Via Natural or Artificial Opening Endoscopic, Diagnostic (ICD-10-PCS; 2016-12-27)
PROC: 30233N1 Transfusion of Nonautologous Red Blood Cells into Peripheral Vein, Percutaneous Approach (ICD-10-PCS; 2016-12-27)
PROC: 0W3P8ZZ Control Bleeding in Gastrointestinal Tract, Via Natural or Artificial Opening Endoscopic (ICD-10-PCS; principal; 2016-12-27 16:00)
PROC: 0DB58ZX Excision of Esophagus, Via Natural or Artificial Opening Endoscopic, Diagnostic (ICD-10-PCS; 2016-12-27 16:00)
DX: K63.3 Ulcer of intestine (principal); N17.0 Acute kidney failure with tubular necrosis; G92 Toxic encephalopathy; E43 Unspecified severe protein-calorie malnutrition; I50.33 Acute on chronic diastolic (congestive) heart failure; I13.0 Hypertensive heart and chronic kidney disease with heart failure and stage 1 through stage 4 chronic kidney disease, or unspecified chronic kidney disease; D68.59 Other primary thrombophilia; E87.2 Acidosis; B37.81 Candidal esophagitis; R29.6 Repeated falls; E11.22 Type 2 diabetes mellitus with diabetic chronic kidney disease; N18.2 Chronic kidney disease, stage 2 (mild); R62.7 Adult failure to thrive; K64.0 First degree hemorrhoids; Z88.2 Allergy status to sulfonamides; R19.5 Other fecal abnormalities; Z90.49 Acquired absence of other specified parts of digestive tract; E83.42 Hypomagnesemia; F17.210 Nicotine dependence, cigarettes, uncomplicated; F41.9 Anxiety disorder, unspecified; D64.9 Anemia, unspecified; D75.89 Other specified diseases of blood and blood-forming organs; K76.0 Fatty (change of) liver, not elsewhere classified; N40.0 Benign prostatic hyperplasia without lower urinary tract symptoms; Z79.899 Other long term (current) drug therapy; Z92.21 Personal history of antineoplastic chemotherapy; Z86.73 Personal history of transient ischemic attack (TIA), and cerebral infarction without residual deficits; Z85.048 Personal history of other malignant neoplasm of rectum, rectosigmoid junction, and anus; Z92.3 Personal history of irradiation; E88.09 Other disorders of plasma-protein metabolism, not elsewhere classified; R74.0 Nonspecific elevation of levels of transaminase and lactic acid dehydrogenase [LDH]; E11.42 Type 2 diabetes mellitus with diabetic polyneuropathy; Z85.528 Personal history of other malignant neoplasm of kidney; Z90.5 Acquired absence of kidney; L98.8 Other specified disorders of the skin and subcutaneous tissue; E53.8 Deficiency of other specified B group vitamins; K29.70 Gastritis, unspecified, without bleeding; R19.7 Diarrhea, unspecified; R53.1 Weakness; Z95.2 Presence of prosthetic heart valve; E11.9 Type 2 diabetes mellitus without complications; F10.21 Alcohol dependence, in remission; L89.152 Pressure ulcer of sacral region, stage 2; S90.02XA Contusion of left ankle, initial encounter; X58.XXXA Exposure to other specified factors, initial encounter; Y93.9 Activity, unspecified; Y92.009 Unspecified place in unspecified non-institutional (private) residence as the place of occurrence of the external cause; W06.XXXA Fall from bed, initial encounter; J44.9 Chronic obstructive pulmonary disease, unspecified; Z68.24 Body mass index [BMI] 24.0-24.9, adult; I48.2 Chronic atrial fibrillation; K57.90 Diverticulosis of intestine, part unspecified, without perforation or abscess without bleeding
CPT/HCPCS: 36415; 36569; 70030-TC; 71010; 74000; 76700; 83550; 83605; 83735; 84100; 84443; 85018; 85025; 85610; 85730; 86592; 86704; 86705; 86706; 86708; 86709; 86803; 86850; 86900; 86901; 86920; 87040; 87086; 87340; 87350; 93005; 93307; 94640; 97001; 97110; 97530; A4217; A4663; C9113; J0282; J0330; J1160; J1940; J2060; J2270; J2405; J2543; J3370; J3475; J3490; J7030; J7040; J7050; J7060; J7614; P9016-BL; P9021

== ENCOUNTER 2017-03-27 12:07 | Emergency (ER) | payer MEDICARE ==
[~2017-03-27] VITALS: Ht 175.3 cm; Wt 72.6 kg
[~2017-03-27 12:07] MED LIST changes: -WARF5TAB8 PO
--- NOTE | 2017-03-27 12:41 | NUR ---
PT IS IN ROOM #2A. DR TAN EVALUATED THE PT.
[2017-03-27] MEDS ORDERED: LOPE-156 PO (12:42)
[2017-03-27] MEDS ORDERED: ALPR0.255 PO (12:42)
[2017-03-27] MEDS ORDERED: FURO20TA4 PO (12:42)
[2017-03-27] MEDS ORDERED: IV NORMAL SALINE 1000 ML BAG IV ONE (13:00)
[2017-03-27 13:18] LABS: BASOPHILS # (AUTO) 0.1 K/uL (0.0-8.0); BASOPHILS % (AUTO) 0.9 % (0.0-2.0); EOSINOPHILS # (AUTO) 0.3 K/uL (0.0-0.7); EOSINOPHILS % (AUTO) 3.5 % (0.0-7.0); HEMATOCRIT 43.7 % (40-50); HEMOGLOBIN 13.8 G/DL (14.0-18.0); LYMPHOCYTES # (AUTO) 2.2 K/UL (0.8-4.8); LYMPHOCYTES % (AUTO) 24.6 % (20.5-51.5); MEAN CORPUSCULAR HEMOGLOBIN 30.9 UUG (27.0-31.0); MEAN CORPUSCULAR HGB CONC 32 g/dL (32.0-37.0); MEAN CORPUSCULAR VOLUME 98.2 FL (82.0-92.0); MONOCYTES # (AUTO) 0.5 K/UL (0.1-1.30); MONOCYTES % (AUTO) 5.9 % (0.0-11.0); NEUTROPHILS # (AUTO) 5.8 K/UL (1.8-8.9); NEUTROPHILS % (AUTO) 65.1 % (38.5-71.5); PLATELET COUNT (AUTO) 184 K/UL (150-450); RED BLOOD CELL COUNT(AUTO) 4.45 MIL/UL (4.7-6.1); WHITE BLOOD COUNT (AUTO) 8.9 K/UL (4.0-11.2)
[2017-03-27 13:26] LABS: CREATININE 1.5 mg/dL (0.6-1.3); POTASSIUM 3.3 mmol/L (3.5-5.1)
[2017-03-27 13:37] LABS: BILIRUBIN,DIRECT 0.2 mg/dL (0.0-0.2); BILIRUBIN,TOTAL 0.5 mg/dL (0.2-1.0); TOTAL PROTEIN, SERUM 8.3 g/dL (6.4-8.2)
--- NOTE | 2017-03-27 14:10 | NUR ---
PT WENT TO [facility] VIA BLS AMBULANCE FOR MRI PROCEDURE.
[2017-03-27] MEDS ORDERED: GADOVERSETAMIDE 2.5 MMOL/5 ML VIAL ONE (14:50)
--- NOTE | 2017-03-27 17:20 | NUR ---
PT CAME BACK FROM [facility] MRI. NO S/S OF ACUTE DISTRESS AT THIS TIME. CONTINUE TO MONITOR THE PT.
--- NOTE | 2017-03-27 17:58 | NUR ---
PT WAS D/C TO HOME AFTER ER MD EVALUATION. D/C INSTRUCTIONS GIVEN TO THE PT.
[2017-03-27 18:00] VITALS: BP 137/76
== END 2017-03-27 18:02 | disposition home or self-care (01) ==
LOC: ER 12:11
DX: C64.2 Malignant neoplasm of left kidney, except renal pelvis (principal); R53.2 Functional quadriplegia; M54.12 Radiculopathy, cervical region; Z88.1 Allergy status to other antibiotic agents; Z88.2 Allergy status to sulfonamides; Z91.013 Allergy to seafood; I10 Essential (primary) hypertension; F17.210 Nicotine dependence, cigarettes, uncomplicated; Z90.49 Acquired absence of other specified parts of digestive tract
CPT/HCPCS: 36415; 70030-TC; 71010; 72158; 83605; 85025; 85730; 87040; 93005; A4663; A9579; J7030

== ENCOUNTER 2017-06-26 10:31 | Inpatient (IN) | payer MEDICARE ==
[2017-06-26] VITALS (31 sets, daily range): BP systolic 79–108; BP diastolic 49–73
[~2017-06-26] VITALS: Ht 177.8 cm; Wt 90.7 kg
[~2017-06-26 10:31] MED LIST changes: +ALPR0.255 PO; +FURO20TA4 PO; +LOPE-156 PO
--- NOTE | 2017-06-26 10:40 | NUR ---
PT IS IN ROOM #1A. DR CASTELLANOS EVALUATED THE PT.
[2017-06-26] MEDS ORDERED: IV NORMAL SALINE 1000 ML BAG IV ONE ×2 (10:45→11:30)
[2017-06-26 11:06] LABS: BASOPHILS # (AUTO) 0.1 K/uL (0.0-8.0); BASOPHILS % (AUTO) 1.4 % (0.0-2.0); EOSINOPHILS % (AUTO) 0.2 % (0.0-7.0); HEMATOCRIT 40.2 % (40-50); HEMOGLOBIN 12.9 G/DL (14.0-18.0); MEAN CORPUSCULAR HEMOGLOBIN 32.7 UUG (27.0-31.0); MEAN CORPUSCULAR HGB CONC 32 g/dL (32.0-37.0); MEAN CORPUSCULAR VOLUME 101.5 FL (82.0-92.0); MONOCYTES % (AUTO) 13.7 % (0.0-11.0); NEUTROPHILS # (AUTO) 4.8 K/UL (1.8-8.9); NEUTROPHILS % (AUTO) 69.7 % (38.5-71.5); WHITE BLOOD COUNT (AUTO) 6.9 K/UL (4.0-11.2)
[2017-06-26 11:07] LABS: RED BLOOD CELL COUNT(AUTO) 4.04 MIL/UL (4.7-6.1)
[2017-06-26 11:10] LABS: CREATININE 4.1 mg/dL (0.6-1.3); POTASSIUM 5.1 mmol/L (3.5-5.1)
[2017-06-26 11:12] LABS: PLATELET COUNT (AUTO) 29 K/UL (150-450)
[2017-06-26 11:27] LABS: BAND % (MANUAL) 2 % (0-10); BILIRUBIN,TOTAL 5.6 mg/dL (0.2-1.0); LYMPHOCYTES % (MANUAL) 12 % (20-40); MONOCYTES % (MANUAL) 10 % (2-10); NEUTROPHILS % (MANUAL) 76 % (42-75); TOTAL PROTEIN, SERUM 7.8 g/dL (6.4-8.2)
[2017-06-26] MEDS ORDERED: MEROPENEM 1 G in IV NORMAL SALINE 100 ML IV ONE (11:30)
[2017-06-26] MEDS ORDERED: VANCOMYCIN IV 1,000 MG in IV DEXTROSE 5% 250 ML IV ONE (11:30)
[2017-06-26 11:31] LABS: ABG BASE EXCESS -7.5 mmol/L; ABG HCO3 16.9 mmol/L; ABG PCO2 31.2 mmHg (35.0-45.0); ABG PH 7.351 (7.350-7.450); ABG PO2 56.1 mmHg (75.0-100.0); ABG SITE RIGHT RADIAL; ABG TOTAL HEMOGLOBIN 13.2 G/dL (13.5-18.0); COHb 1.7 % (0.5-1.5); MetHb 0.3 % (0.0-1.5); O2Hb 82.6 % (94.0-97.0); VENT MODE Nasal Cannula
[2017-06-26] MEDS ORDERED: ONDA4TAB10 PO (11:31)
[2017-06-26] MEDS ORDERED: PAZO200T PO (11:31)
[2017-06-26] MEDS ORDERED: PARO10TA86 PO (11:31)
[2017-06-26] MEDS ORDERED: ESCI20TA PO (11:31)
[2017-06-26] MEDS ORDERED: ALBUTEROL SULFATE 2.5 MG/3 ML NEBU NEB ONE (11:45)
--- NOTE | 2017-06-26 11:45 | NUR ---
CODE SEPSIS WAS CALLED BY DR CASTELLANOS. CODE SEPSIS PROTOCOL STARTED.
[2017-06-26] MEDS ORDERED: ALBUTEROL SULFATE 2.5 MG/3 ML NEBU ONE (11:50)
--- NOTE | 2017-06-26 11:55 | NUR ---
PT INTUBATED WITH ET TUBE SIZE 7, TAPED AT APPROX. 22 CM AT LIP. PLACED ON SETTINGS OF AC 16, VT 500, PEEP 5 AND FIO2 100%. PT IS SEDATED AND NON RESPONSIVE AT THIS TIME. ABG DONE POST 30 MINUTES WITH RESULT GIVEN TO DR. CASTELLANOS. Addendum: 06/26/17 at 1811 by ZORAIDA KAMINSKI RT ET TUBE SIZE IS 7.5
--- NOTE | 2017-06-26 11:55 | NUR ---
PT WAS RE-EVALUATED BY DR CASTELLANOS. PT WAS INTUBATED BY DR CASTELLANOS. ET TUBE #7.5; 22 CM AT THE LIPS. AC VENTILATOR WITH SETTINGS : R=16, HD=681, PEAK FLOW=35, PEEP=5, R6=949%. PT TOLERATED TO INTUBATION WITHOUT COMPLICATIONS. CONTINUE TO MONITOR THE PT.
[2017-06-26] MEDS ORDERED: ETOMIDATE 20 MG/10 ML VIAL ONE (12:00)
[2017-06-26] MEDS ORDERED: PROPOFOL 1,000 MG/100 ML BOTTLE IV ONE (12:00)
[2017-06-26] MEDS ORDERED: PROPOFOL 100 ML ONE (12:01)
[2017-06-26] MEDS ORDERED: PANTOPRAZOLE SODIUM IV 80 MG in IV DEXTROSE 5% 100 ML IV ONE (12:15)
[2017-06-26] MEDS ORDERED: CLINDAMYCIN PHOSPHATE IV 900 MG in IV DEXTROSE 5% 100 ML IV ONE (12:30)
[2017-06-26] MEDS ORDERED: MEROPENEM 1 G VIAL IV ONE (12:31)
[2017-06-26] MEDS ORDERED: DILTIAZEM HCL 25 MG IV IV ONE (12:45)
[2017-06-26 12:46] LABS: ABG BASE EXCESS -7.7 mmol/L; ABG HCO3 18.5 mmol/L; ABG PCO2 40.3 mmHg (35.0-45.0); ABG PO2 447.3 mmHg (75.0-100.0); ABG SITE RIGHT RADIAL; ABG TOTAL HEMOGLOBIN 12.4 G/dL (13.5-18.0); COHb 1.5 % (0.5-1.5); MetHb 0.4 % (0.0-1.5); O2Hb 97.8 % (94.0-97.0); VENT MODE VENT - A/C; VT, ABG 500 mL
[2017-06-26] MEDS ORDERED: DILTIAZEM HCL 25 MG IV ONE (13:07)
[2017-06-26] MEDS ORDERED: CLINDAMYCIN PHOSPHATE 900 MG/6 ML VIAL ONE (13:08)
[2017-06-26] MEDS ORDERED: PANTOPRAZOLE SODIUM 40 MG VIAL IV ONE (13:15)
--- NOTE | 2017-06-26 13:30 | NUR ---
PICC LINE RN CECY AND RODRÍGUEZ WERE CALLED. RODRÍGUEZ IS NOT AVAILABLE. CECY WILL CAME AT 1700. SILK SPOTTER GIA TALKED TO HIM ABOUT PICC LINE. DR CASTELLANOS NOTIFIED.
[2017-06-26] MEDS ORDERED: IV NS 1000 ML 1,000 ML IV PRN (13:38)
[2017-06-26] MEDS ORDERED: ONDANSETRON 4 MG/2 ML VIAL IV PRN (13:45)
[2017-06-26] MEDS ORDERED: Z GUARD REMEDY PASTE 57 GM TUBE TOP PRN (13:45)
[2017-06-26] MEDS ORDERED: ETOMIDATE 20 MG/10 ML VIAL IV ONE (13:45)
[2017-06-26 13:46] LABS: *BLOOD, URINE 3+ (NEGATIVE); *CLARITY,URINE CLOUDY (CLEAR); *KETONES,URINE TRACE (NEGATIVE); LEUKOCYTE ESTERASE ,URINE 1+ (NEGATIVE); NITRITE, URINE NEGATIVE (NEGATIVE); UGLUCOSE NEGATIVE (NEGATIVE)
[2017-06-26] MEDS ORDERED: PANTOPRAZOLE SODIUM 40 MG VIAL ONE (13:58)
[2017-06-26] MEDS ORDERED: VANCOMYCIN IV 200 ML ONE (13:59)
[2017-06-26 14:00] LABS: *BILIRUBIN,URIN NEGATIVE (NEGATIVE)
[2017-06-26] MEDS ORDERED: MEROPENEM 0.5 G in IV NORMAL SALINE 50 ML IV SCH (14:00)
--- NOTE | 2017-06-26 14:00 | NUR ---
admitted from ED. Report received from SusiAnne-Marie, 67yr old male admitted for acute resp falure, acute renal failur acure liver failure. is orally intubated, ett 7.5 taped at 22cm. on vent ac 18, peep 5 tv 600 fio2 100%. elliot RTY titrated Fio2 down to 50%. ekg is atrial fib hr 114/min bp 98/68 patient is very cold. warmed up with blamkets. dr kee called for admission orders. plan transfuse 4 units of ffp and 1 unit of plateletpheresis pack. ngt via right nare intact. diaz catheter intact is oliguric. has dependent edema of the feet. patient is sedated on diprivan drip but responsive to pain, Addendum: 06/26/17 at 1644 by LONI MANZANARES RN Amended: Links added.
[2017-06-26 14:03] LABS: *PROTEIN,URINE 1+ (NEGATIVE)
--- NOTE | 2017-06-26 14:10 | NUR ---
PT WAS TRANSFERED TO ROOM #3 CCU. REPORT WAS GIVEN TO CCU RN LONI.
--- NOTE | 2017-06-26 14:15 | NUR ---
PT WAS TRASPORTED TO CCU BED 3 WITH NO COMPLICATION. VENT SETTINGS CHANGES MADE RATE OF 18, VT 600, AND FIO2 OF 50%. ET TUBE REMAIN SECURED AND PLACED. AIRWAY PATENT. NO RESPIRATORY DISTRESS NOTED. WILL CONTINUE TO MONITOR THROUGHOUT THE SHIFT.
[2017-06-26 14:16] LABS: *COLOR,URINE YELLOW (YELLOW)
[2017-06-26 14:17] LABS: RBC,URINE 20-50 /HPF (0-3)
[2017-06-26 14:18] LABS: BACTERIA,URINE MODERATE /HPF (NONE SEEN); SQUAMOUS EPITHELIAL CELL,UR FEW /HPF (NONE SEEN); WBC,URINE TNTC /HPF (0-3)
--- NOTE | 2017-06-26 15:26 | NUR ---
1 unit of ffp startted via right jr #20 Addendum: 06/26/17 at 1526 by LONI MANZANARES RN Amended: Links added.
--- NOTE | 2017-06-26 15:55 | NUR ---
1 unit of platelet pheresis pack started at via gabe Addendum: 06/26/17 at 1555 by LONI MANZANARES RN Amended: Links added.
--- NOTE | 2017-06-26 16:48 | NUR ---
first ffp completed Addendum: 06/26/17 at 1648 by LONI MANZANARES RN Amended: Links added.
[2017-06-26 17:11] LABS: BASOPHILS % (AUTO) 0.3 % (0.0-2.0); EOSINOPHILS # (AUTO) 0.1 K/uL (0.0-0.7); EOSINOPHILS % (AUTO) 1.7 % (0.0-7.0); HEMATOCRIT 32.8 % (40-50); HEMOGLOBIN 10.9 G/DL (14.0-18.0); LYMPHOCYTES # (AUTO) 0.2 K/UL (0.8-4.8); LYMPHOCYTES % (AUTO) 4.8 % (20.5-51.5); MEAN CORPUSCULAR HEMOGLOBIN 33.4 UUG (27.0-31.0); MEAN CORPUSCULAR HGB CONC 33 g/dL (32.0-37.0); MEAN CORPUSCULAR VOLUME 100.6 FL (82.0-92.0); MONOCYTES # (AUTO) 0.2 K/UL (0.1-1.30); NEUTROPHILS # (AUTO) 2.9 K/UL (1.8-8.9); NEUTROPHILS % (AUTO) 88.2 % (38.5-71.5); RED BLOOD CELL COUNT(AUTO) 3.26 MIL/UL (4.7-6.1); WHITE BLOOD COUNT (AUTO) 3.4 K/UL (4.0-11.2)
--- NOTE | 2017-06-26 17:15 | NUR ---
PT REMAINS ON CMV WITH ETT SECURED AND AIRWAY PATENT. PT COMFORTABLE TOLERATING CURRENT VENT SETTINGS FINE. VENT SETTINGS ARE AC18/VT 600/50% FIO2/+ 5 OF PEEP.
[2017-06-26 17:26] LABS: PLATELET COUNT (AUTO) 17 K/UL (150-450)
[2017-06-26] MEDS: IV D5/ 0.9% NACL 1,000 ML IV PRN (18:00)
--- NOTE | 2017-06-26 18:10 | NUR ---
PHARMACY CLINICAL NOTES ( VANCOMYCIN DOSING); S: 67 yo male with HX of Colon cancer; recurrence and metastasis on chemo, cirrohsis, renal insufficiency ordered Merrem and Vancomycin for sepsis O: BUN/SCR 67/4.1; WBC 6.9; TEMP 98.3; DOSING WT = 167 LBS, HT 70 INCH A/P: Since renal fxn if compromised will dose Vancomycin by fall of level; Pt received 1gm IVPB in ER today @ 1400 will order a level for tomorrow for 1800 and administer another vancomycin 1 gm if level is below 20 , will continue to follow
[2017-06-26] MEDS ORDERED: PROPOFOL 100 ML IV PRN (18:45)
--- NOTE | 2017-06-26 19:00 | NUR ---
report given to Sergio Addendum: 06/26/17 at 1958 by LONI MANZANARES RN Amended: Links added.
[2017-06-26 19:30] LABS: BAND % (MANUAL) 7 % (0-10); LYMPHOCYTES % (MANUAL) 13 % (20-40); MONOCYTES % (MANUAL) 13 % (2-10); NEUTROPHILS % (MANUAL) 67 % (42-75)
--- NOTE | 2017-06-26 19:30 | NUR ---
Received SBAR report from Ismael Redman RN. Patient is sedated on propofol 20 mcg/kg/min. Arousable to speech/touch/light pain stimuli. A-fib with RVR, HR 120+, MD aware. ETT 7.5 @ 22cm with vent settings as follows: AC 18, Vt 600, PEEP 5, FiO2 50%. NG-tube to right nare, clamped. Flexiseal to be inserted. Green cath intact, draining. Peripheral IV to R AC and L wrist. PICC line nurse at bedside for PICC insert. On 1st step mattress. Will continue plan of care.
--- NOTE | 2017-06-26 19:40 | NUR ---
Pt received on Marcelo ventilator with current settings of AC 18, VT 600, Peep +5, FiO2 50%. ETT patent and secured with anchor fast at approximately 22cm at the lip. No signs of respiratory distress noted at this time. Suctioned pt with moderate amount of thick pale-yellowish secretions, and suctioned orally with large amount of bloody secretions. Nurse aware. Vent alarms functioning and audible. Will continue to monitor pt throughout shift.
--- NOTE | 2017-06-26 20:00 | NUR ---
Started patient on Levophed for hypotension management. Will titrate as appropriate. A-fib with RVR, HR 120+. Per MD notes, unable to manage HR in lieu of hypotension; suspect that HR will decrease with management of other medical issues. Will continue to monitor.
[2017-06-26] MEDS: NOREPINEPHRINE BITARTRATE 16 MG in IV DEXTROSE 5% 500 ML IV PRN (20:08)
[2017-06-26] MEDS: MICAFUNGIN SODIUM 100 MG in IV NORMAL SALINE 100 ML IV SCH (21:09)
[2017-06-26] MEDS: MEROPENEM 500 MG in IV NORMAL SALINE 50 ML IV SCH (21:56)
[2017-06-26] MEDS: PROPOFOL 100 ML IV PRN (23:09)
[2017-06-27] VITALS (98 sets, daily range): BP systolic 75–108; BP diastolic 48–72
[2017-06-27] MEDS: IV D5/ 0.9% NACL 1,000 ML IV PRN ×2 (06:04→22:14)
[2017-06-27 06:09] LABS: BASOPHILS % (AUTO) 0.5 % (0.0-2.0); EOSINOPHILS # (AUTO) 0.1 K/uL (0.0-0.7); EOSINOPHILS % (AUTO) 0.9 % (0.0-7.0); HEMATOCRIT 28.4 % (40-50); HEMOGLOBIN 9.3 G/DL (14.0-18.0); LYMPHOCYTES # (AUTO) 1.2 K/UL (0.8-4.8); LYMPHOCYTES % (AUTO) 14.6 % (20.5-51.5); MEAN CORPUSCULAR HGB CONC 33 g/dL (32.0-37.0); MEAN CORPUSCULAR VOLUME 101.2 FL (82.0-92.0); MONOCYTES # (AUTO) 0.4 K/UL (0.1-1.30); MONOCYTES % (AUTO) 4.5 % (0.0-11.0); NEUTROPHILS # (AUTO) 6.2 K/UL (1.8-8.9); NEUTROPHILS % (AUTO) 79.5 % (38.5-71.5); RED BLOOD CELL COUNT(AUTO) 2.81 MIL/UL (4.7-6.1); WHITE BLOOD COUNT (AUTO) 7.9 K/UL (4.0-11.2)
[2017-06-27 06:18] LABS: PLATELET COUNT (AUTO) 35 K/UL (150-450)
[2017-06-27 06:28] LABS: BILIRUBIN,TOTAL 4.1 mg/dL (0.2-1.0); CREATININE 3.8 mg/dL (0.6-1.3); MAGNESIUM 1.6 mg/dL (1.8-2.4); PHOSPHOROUS 2.2 mg/dL (2.5-4.9); POTASSIUM 3.2 mmol/L (3.5-5.1); TOTAL PROTEIN, SERUM 6.2 g/dL (6.4-8.2)
--- NOTE | 2017-06-27 07:20 | NUR ---
Patient received on 5mcg/min of levophed, propofol 20mcg/kg/min. On the ventilator with ETT 3cm's above tylor Dr. Olivares notified. A/c18, tv600 Peep of 5 and 50% FIO2. gag and cough reflex present. on semi-fowlers position.
--- NOTE | 2017-06-27 07:31 | NUR ---
A call to Dr. Olivares to notify x-ray results with the need to advance ETT 3cm's as its resting 3 cms above the tylor. awaiting call back.
--- NOTE | 2017-06-27 08:08 | NUR ---
A call back from Dr. Olivares orders to advanced Ett. 3cms received, RT in the unit notified and order carried out. Orders for morning ABG received as well as orders to start patient on GI prophylaxis.
[2017-06-27] MEDS: MEROPENEM 500 MG in IV NORMAL SALINE 50 ML IV SCH ×2 (08:18→21:11)
--- NOTE | 2017-06-27 08:24 | NUR ---
ETT advanced 3cm's as ordered now resting at 25cm lip-line.
--- NOTE | 2017-06-27 08:30 | NUR ---
RECEIVED ORDER PER MD TO MOVE ET TUBE INWARD 3CM. ET TUBE PLACED AT 26CM AT THE LIP WITHOUT INCIDENT. CONNOR JOHNSON IS AWARE AND INFORMED.
[2017-06-27] MEDS: PANTOPRAZOLE SODIUM 40 MG VIAL IV SCH ×2 (08:53→21:10)
[2017-06-27 09:00] LABS: ABG HCO3 26.2 mmol/L; ABG PCO2 27.6 mmHg (35.0-45.0); ABG PH 7.596 (7.350-7.450); ABG PO2 146.8 mmHg (75.0-100.0); ABG SITE RIGHT RADIAL; ABG TOTAL HEMOGLOBIN 10.4 G/dL (13.5-18.0); MetHb 0.2 % (0.0-1.5); O2Hb 98.3 % (94.0-97.0); VENT MODE VENT - A/C; VT, ABG 600 mL
[2017-06-27] MEDS ORDERED: RIFAXIMIN 200 MG TABLET PO SCH (09:00)
[2017-06-27] MEDS: PROPOFOL 100 ML IV PRN ×2 (09:26→16:00)
--- NOTE | 2017-06-27 09:52 | NUR ---
Dr. Olivares notified of morning ABG.
[2017-06-27] MEDS ORDERED: VANCOMYCIN IV 1 G in PREMIXED 0 EACH IV ONE (10:00)
[2017-06-27 10:22] LABS: BAND % (MANUAL) 16 % (0-10); LYMPHOCYTES % (MANUAL) 10 % (20-40); MONOCYTES % (MANUAL) 3 % (2-10); NEUTROPHILS % (MANUAL) 71 % (42-75)
--- NOTE | 2017-06-27 10:45 | NUR ---
A call to Dr. Mcknight to notify the need to increase levophed drip and this affecting heart rate (A-Fib) in the 140's 160"s sustained with orders to continue monitoring.
--- NOTE | 2017-06-27 11:35 | NUR ---
Dr. Oneill in the unit to assess patient; and also updating pt's partner who remains at bedside. Report given.
--- NOTE | 2017-06-27 11:44 | NUR ---
VENT SETTINGS CHANGED PER MD ORDER TO AC 16, VT 500, PEEP +5, FIO2 50%. ORAL CARE DONE, AND ET TUBE MOVED TO THE LEFT. PT IS TOLERATING VENT SETTINGS WELL. CONNOR DOMINIQUE AWARE AND INFORMED.
[2017-06-27] MEDS ORDERED: OCTREOTIDE ACETATE 50 MCG in IV NORMAL SALINE 50 ML IV ONE (12:00)
--- NOTE | 2017-06-27 12:30 | NUR ---
Dr. Mcnair pulmonary services in the unit to examine patient; report given.
[2017-06-27] MEDS ORDERED: MAGNESIUM SULFATE/D5W 100 ML IV SCH (13:00)
[2017-06-27] MEDS: POTASSIUM PHOSPHATE MM 5 MMOL in IV DEXTROSE 5% 100 ML IV SCH ×2 (13:59→16:13)
[2017-06-27] MEDS: OCTREOTIDE ACETATE DRIP 1,250 MCG in IV NORMAL SALINE 247.5 ML IV PRN (13:59)
--- NOTE | 2017-06-27 14:11 | NUR ---
PHARMACY NOTE: (VANCOMYCIN DOSING) Subjective: Vancomycin to continue for this 67 YO male patient for sepsis, UTI (recent chemo) Objective: ht 70'' wt 166 lb bun /scr 69/3.8 (ARF) wbc 7.9 temp 98.7 vanco random level: 12.2 A/P: will continue to dose by fall off level due to elevated srcr. Since vanco random this am is 12.2 mcg/ml, will give vanco 1 gm IVPB x1 today. Pharmacy shall check srcr in am & decide when to order vanco random for further dosing. Will monitor daily.
--- NOTE | 2017-06-27 14:16 | NUR ---
PT RECEIVED ON VO VENT WITH SETTINGS OF AC 18, VT 600, PEEP +5, 50%. ALARMS ARE ON AND AUDIBLE. AIRWAY IS PATENT, AMBU-BAG AT BEDSIDE. PT TOLERATING VENT SETTINGS WELL, AND SHOWING NO SIGNS OF RESPIRATORY DISTRESS AT THIS TIME. HME WILL BE CHANGED AND ET TUBE WILL BE MOVED THROUGHOUT THE SHIFT. WILL CONTINUE TO MONITOR.
--- NOTE | 2017-06-27 15:35 | NUR ---
Vicky Bergman NP GI Dr. Knutson in to examine patient; orders to place NG to LIS received, and implemented. as stated "I"ll place the order on [employer]
--- NOTE | 2017-06-27 18:10 | NUR ---
Dr. Olivares in the unit to examine patient, report given no orders received.
[2017-06-27] MEDS: MICAFUNGIN SODIUM 100 MG in IV NORMAL SALINE 100 ML IV SCH (18:27)
--- NOTE | 2017-06-27 19:30 | NUR ---
Patient sedated on propofol 25 mcg/kg/min. A-fib with RVR, HR > 130. On Levophed drip at 8 mcg/min. ETT 7.5 at 25 cm lip line. Vent settings as follows: AC 16, Vt 500, PEEP 5, FiO2 50%. NG-tube to right nare to low intermittent suction, dark red aspirate. Flexiseal intact, draining dark liquid stool. Green cath intact and draining. RUE PICC line, R AC peripheral IV, and L wrist peripheral IV. Fluids running as ordered, see eMAR. SBAR report received from Star Alvarado RN. Will continue plan of care.
--- NOTE | 2017-06-27 19:45 | NUR ---
Mary, ID-E[employer] COMMODITY MANAGER at bedside for assessment. Updates given
--- NOTE | 2017-06-27 19:52 | NUR ---
Received pt orally intubated with 7.5 ETT~26cm at lip line, on Marcelo vent with the following settings of AC-16, Vt-500, PEEP+5, FIO2-50%. Pt tachycardic with low BP. No s/s of respiratory distress noted. Airway care done, pt responded to physical stimuli. EET moved to the left. Resus. bag at bedside. Vent and alarms on and audible.
[2017-06-28] VITALS (100 sets, daily range): BP systolic 80–132; BP diastolic 35–91
[2017-06-28] MEDS: IV D5/ 0.9% NACL 1,000 ML IV PRN ×2 (00:58→14:10)
[2017-06-28] MEDS: PROPOFOL 100 ML IV PRN (02:26)
[2017-06-28 05:08] LABS: BASOPHILS % (AUTO) 0.2 % (0.0-2.0); EOSINOPHILS # (AUTO) 0.4 K/uL (0.0-0.7); EOSINOPHILS % (AUTO) 4.1 % (0.0-7.0); HEMOGLOBIN 10.6 G/DL (14.0-18.0); LYMPHOCYTES # (AUTO) 1.2 K/UL (0.8-4.8); LYMPHOCYTES % (AUTO) 12.3 % (20.5-51.5); MEAN CORPUSCULAR HEMOGLOBIN 34.8 UUG (27.0-31.0); MEAN CORPUSCULAR HGB CONC 34 g/dL (32.0-37.0); MEAN CORPUSCULAR VOLUME 101.4 FL (82.0-92.0); MONOCYTES # (AUTO) 0.7 K/UL (0.1-1.30); MONOCYTES % (AUTO) 7.7 % (0.0-11.0); NEUTROPHILS # (AUTO) 7.1 K/UL (1.8-8.9); NEUTROPHILS % (AUTO) 75.7 % (38.5-71.5); RED BLOOD CELL COUNT(AUTO) 3.06 MIL/UL (4.7-6.1); WHITE BLOOD COUNT (AUTO) 9.4 K/UL (4.0-11.2)
[2017-06-28 05:16] LABS: PLATELET COUNT (AUTO) 30 K/UL (150-450)
--- NOTE | 2017-06-28 05:17 | NUR ---
Cont. monitor pt on present vent settings. During the shift pt still tachycardic and hypotensive. No respiratory distress noted. Present vent settings pt tolerated well, no changes made. Sx and lavage PRN. Oral care done. ETT moved X3 during the shift. HME changed. Resus. bag at bedside. Vent and alarms checked and reset.
[2017-06-28 05:25] LABS: BILIRUBIN,TOTAL 5.2 mg/dL (0.2-1.0); CREATININE 3.9 mg/dL (0.6-1.3); PHOSPHOROUS 4.6 mg/dL (2.5-4.9); POTASSIUM 3.7 mmol/L (3.5-5.1)
[2017-06-28 05:26] LABS: MAGNESIUM 2.2 mg/dL (1.8-2.4); TOTAL PROTEIN, SERUM 6.2 g/dL (6.4-8.2)
[2017-06-28] MEDS: NOREPINEPHRINE BITARTRATE 16 MG in IV DEXTROSE 5% 500 ML IV PRN (06:04)
[2017-06-28 06:19] LABS: BAND % (MANUAL) 35 % (0-10); EOSINOPHILS % (MANUAL) 3 % (0-8); LYMPHOCYTES % (MANUAL) 13 % (20-40); METAMYELOCYTES % 7 % (0-1); MYELOCYTES % 2 % (0-0); NEUTROPHILS % (MANUAL) 39 % (42-75)
--- NOTE | 2017-06-28 07:00 | NUR ---
PT IS LAYING IN BED COMFORTABLY. NO S/S OF RESPIRRATORY DISTRESS NOTED. NO PAIN NOTED. ALL SAFETY NEEDS ARE MET. PT IS ORALLY INTUBATED WITH 7.5 ET TUBE 26CM AT THE LIP ON VO VENT WITH SETTINGS OF AC 16, VT500, PEEP +5, FIO2 50%. ANCHOR-FAST IS SECURE WITH GOOD SKIN INTEGRITY. AMBU-BAG IS AT BEDSIDE. ORAL CARE DONE. PT IS TACHYCARDIC, PT IS TOLERATING VENT SETTINGS WELL, WILL CONTINUE TO MONITOR.
--- NOTE | 2017-06-28 07:17 | NUR ---
No significant changes overnight. Patient sedated with propofol 25 mcg/kg/min at 78.5 kg. Afebrile. A-fib with RVR on ekg monitor tech with rates between 120-150. Hypotensive, managed with Levophed 9 mcg/min. ETT 7.5 at 25 cm lip line. Vent settings as follows: AC 16 Vt 500 PEEP5 FiO2 50%. NG-tube to right nare, low intermittent suction. 500 mL bloody fluid total aspirated during shift. Flexiseal intact, 100mL total output. Green catheter in place with low urinary output; 150 mL total during shift. Skin care provided and frequent repositioning. 1st step mattress. IVF running as ordered. Handoff report given to Olena Little RN
--- NOTE | 2017-06-28 08:25 | NUR ---
PT RECEIVED ORALLY INTUBATED WITH 7.5 ET TUBE 26CM AT THE LIP ON VO VENT WITH SETTINGS OF AC 16, VT500, PEEP +5, FIO2 50%. ANCHOR-FAST IS SECURE WITH GOOD SKIN INTEGRITY. ALARMS ARE ON AND AUDIBLE, AMBU-BAG IS AT BEDSIDE. ORAL CARE DONE, ET TUBE WAS MOVED TO THE RIGHT. PT IS TACHYCARDIC WITH LOW B/P. PT IS TOLERATING VENT SETTINGS WELL, SHOWING NO SIGNS OF RESPIRATORY DISTRESS. WILL CONTINUE TO MONITOR.
[2017-06-28] MEDS: MEROPENEM 500 MG in IV NORMAL SALINE 50 ML IV SCH ×2 (08:51→21:22)
[2017-06-28] MEDS: PANTOPRAZOLE SODIUM 40 MG VIAL IV SCH ×2 (08:51→21:22)
--- NOTE | 2017-06-28 09:00 | NUR ---
BLOOD CULTURE REPORT IS PAGED TO DR. MONROE
[2017-06-28 09:31] LABS: ABG BASE EXCESS -5.1 mmol/L; ABG HCO3 18.5 mmol/L; ABG PCO2 29.7 mmHg (35.0-45.0); ABG PH 7.412 (7.350-7.450); ABG PO2 162.7 mmHg (75.0-100.0); ABG SITE RIGHT RADIAL; ABG TOTAL HEMOGLOBIN 11.2 G/dL (13.5-18.0); COHb 1.1 % (0.5-1.5); MetHb 0.2 % (0.0-1.5); O2Hb 98.2 % (94.0-97.0); VENT MODE VENT - A/C; VT, ABG 500 mL
--- NOTE | 2017-06-28 10:20 | NUR ---
Dr. Olivares notified of preliminary blood culture results with Gram Negative Rods. No orders received.
--- NOTE | 2017-06-28 11:26 | NUR ---
DR. DOMINGO CAME TO SEE THE PT, PT REPORT IS GIVEN. DR ASSESSED THE PT. DR. DOMINGO PLANS TO CONTINUE OCRIOTIDE UNTIL 06/30, ALSO CONTINUE PROTONIX ANOTHER 72 HOURS.
--- NOTE | 2017-06-28 12:32 | NUR ---
DR EDGE IS HERE TO SEE THE PT. PT REPORT IS GIVEN.
--- NOTE | 2017-06-28 13:08 | NUR ---
PER DR. EDGE CHANGE VENT SETTINGS TO FIO2 30%, ORDER NOTED AND CARRIED OUT. PAGED RT
--- NOTE | 2017-06-28 13:22 | NUR ---
FIO2 TITRATED TO 30% PER MD ORDER, CONNOR QUINTANILLA IS AWARE AND NOTIFIED. PT TOLERATING VENT SETTINGS WELL. PT SHOWING NO SIGNS OF RESPIRATORY DISTRESS.
[2017-06-28] MEDS ORDERED: PHYTONADIONE 10 MG/1 ML AMPUL SQ ONE (14:00)
--- NOTE | 2017-06-28 14:13 | NUR ---
WOUND CARE CONSULT: PT PRESENTS WITH DEEP TISSUE INJURY TO RT HIP, PRESENT ON ADMISSION. PT INTUBATED, IMMOBILE, WITH BRAGA AND RECTAL TUBE. SCROTAL EDEMA NOTED. ALL SKIN PROTECTION MEASURES IN PLACE. WOUND RECOMMENDATIONS DISCUSSED WITH NURSING STAFF. PT ON FIRST STEP MATTRESS. WILL SEE PRN. CURRENT JE SCORE IS 10. IN AGREEMENT WITH PLAN OF CARE. Addendum: 06/28/17 at 1415 by CEDRICK CABRAL RN Amended: Links added.
--- NOTE | 2017-06-28 15:00 | NUR ---
Dr Tavarez is here to see the pt, report is given to Dr. Tavarez, per Dr. Tavarez fresh frozen plasma will be given to the pt.
--- NOTE | 2017-06-28 15:04 | NUR ---
Vancomycin to continue for this 67 YO male patient for sepsis, UTI (recent chemo) Objective: ht 70'' wt 166 lb bun /scr 70/3.9 (ARF) wbc 9.4 temp 98.1 A/P: will continue to dose by fall off level due to elevated srcr. Last dose vanco 1 gm IVPB x1 given 06/27 @ 1000. Based on Scr, no dose today. Next random ordered for tomorrow with am labs. Pharmacy shall check srcr in am and dose as needed. Will monitor daily.
[2017-06-28] MEDS: OCTREOTIDE ACETATE DRIP 1,250 MCG in IV NORMAL SALINE 247.5 ML IV PRN (16:48)
[2017-06-28] MEDS: MICAFUNGIN SODIUM 100 MG in IV NORMAL SALINE 100 ML IV SCH (18:55)
--- NOTE | 2017-06-28 19:00 | NUR ---
RECEIVED PT ON VO VENT WITH SETTINGS OF AC 16, VT 500, PEEP +5, FIO2 30%. PT IS ORALLY INTUBATED WITH 7.5 ETT APPROXIMATELY 26CM AT THE LIP. ETT IS PATENT AND SECURED WITH ANCHOR-FAST. VENT CHECK DONE. ALARMS CHECKED, ARE ON AND AUDIBLE. PT SHOWING NO S/S OF RESPIRATORY DISTRESS AT THIS TIME. ETT WILL BE READJUSTED THROUGHOUT SHIFT. PT IS TACHYCARDIC AT THIS TIME. ORAL CARE DONE. LAVAGE AND SUCTIONED MODERATE AMOUNT OF THICK, YELLOWISH SECRETIONS. HME CHANGED. AMBU BAG IS AT BEDSIDE. WILL CONTINUE TO MONITOR THROUGHOUT SHIFT.
--- NOTE | 2017-06-28 19:23 | NUR ---
PT IS LAYING IN BED COMFORTABLY. NO S/S OF RESPIRATORY DISTRESS NOTED. NO PAIN NOTED. ALL SAFETY NEEDS ARE MET. PT IS ORALLY INTUBATED WITH 7.5 ET TUBE 26CM AT THE LIP ON VO VENT WITH SETTINGS OF AC 16, VT500, PEEP +5, FIO2 30%. ANCHOR-FAST IS SECURE WITH GOOD SKIN INTEGRITY. AMBU-BAG IS AT BEDSIDE. WOUND CARE IS DONE. PT IS TACHYCARDIC, PT IS TOLERATING VENT SETTINGS WELL, PT IS RECEIVING FFP, TOLERATING WELL, NO S/S OF ALLERGIC REACTION NOTED.
--- NOTE | 2017-06-28 19:30 | NUR ---
SBAR report received from Olena Little RN. Patient off propofol, appears comfortable. Arousable to speech and touch stimuli. Unable to follow commands, unable to nod yes/no. A-fib with RVR on groundwater monitoring technician. Levophed drip at 9mcg/min. ETT 7.5 at 25 cm lip line. AC 16, Vt 500, PEEP 5, FiO2 30%. Right nare with NG-tube to suction. Flexiseal intact, draining. Green catheter intact. Patient appears to be in no acute distress. Will continue plan of care.
--- NOTE | 2017-06-28 20:08 | NUR ---
Family at bedside. Education and demonstration provided regarding contact isolation and demonstration of proper PPE donning/hand hygiene. Return demonstration and verbalized understanding
--- NOTE | 2017-06-28 20:15 | NUR ---
Dr Olivares at bedside for assessment. Updates given.
--- NOTE | 2017-06-28 20:30 | NUR ---
Dr. Ventura at bedside for assessment. Updates given
--- NOTE | 2017-06-28 21:00 | NUR ---
Transfused 1 unit FFP as ordered. No signs of adverse reaction
--- NOTE | 2017-06-28 22:42 | NUR ---
Slight improvement in mental status. Patient is able to follow simple commands, i.e. squeeze hands when prompted, although very weak.
--- NOTE | 2017-06-28 22:45 | NUR ---
Patient unable to state presence of pain. However, noted s/s of pain such as tears, frowning/grimacing, and elevated HR when patient is awake. Notified MD, orders received. Will continue to monitor.
[2017-06-28] MEDS: HYDROMORPHONE 1 MG/1 ML DISP.SYRIN IV PRN (22:53)
[2017-06-28] MEDS ORDERED: LORAZEPAM 2 MG/1 ML VIAL IV PRN (23:00)
[2017-06-28] MEDS ORDERED: HYDROMORPHONE 1 MG/1 ML DISP.SYRIN ONE (23:07)
--- NOTE | 2017-06-28 23:07 | NUR ---
Dilaudid pulled from pyxis, administered as ordered. See eMAR
[2017-06-29] VITALS (98 sets, daily range): BP systolic 83–132; BP diastolic 55–84
--- NOTE | 2017-06-29 | NUR ---
1 unit FFP transfused as ordered with no signs or symptoms of reaction
--- NOTE | 2017-06-29 02:00 | NUR ---
1 unit Platelets transfused with no adverse effects or reactions
[2017-06-29 05:08] LABS: BASOPHILS % (AUTO) 0.2 % (0.0-2.0); EOSINOPHILS # (AUTO) 0.1 K/uL (0.0-0.7); LYMPHOCYTES # (AUTO) 1.2 K/UL (0.8-4.8); NEUTROPHILS # (AUTO) 8.3 K/UL (1.8-8.9)
[2017-06-29 05:14] LABS: BILIRUBIN,TOTAL 6.5 mg/dL (0.2-1.0); CREATININE 4.3 mg/dL (0.6-1.3); EOSINOPHILS % (AUTO) 1.2 % (0.0-7.0); HEMATOCRIT 30.9 % (40-50); LYMPHOCYTES % (AUTO) 11.5 % (20.5-51.5); MAGNESIUM 2.2 mg/dL (1.8-2.4); MEAN CORPUSCULAR HEMOGLOBIN 34.1 UUG (27.0-31.0); MEAN CORPUSCULAR HGB CONC 33 g/dL (32.0-37.0); MONOCYTES # (AUTO) 0.8 K/UL (0.1-1.30); MONOCYTES % (AUTO) 7.9 % (0.0-11.0); NEUTROPHILS % (AUTO) 79.2 % (38.5-71.5); PHOSPHOROUS 6.7 mg/dL (2.5-4.9); POTASSIUM 4.3 mmol/L (3.5-5.1); RED BLOOD CELL COUNT(AUTO) 2.94 MIL/UL (4.7-6.1); TOTAL PROTEIN, SERUM 6.8 g/dL (6.4-8.2); WHITE BLOOD COUNT (AUTO) 10.4 K/UL (4.0-11.2)
[2017-06-29 05:24] LABS: PLATELET COUNT (AUTO) 47 K/UL (150-450)
[2017-06-29] MEDS: IV D5/ 0.9% NACL 1,000 ML IV PRN ×2 (05:39→22:38)
[2017-06-29 05:40] LABS: BAND % (MANUAL) 6 % (0-10); LYMPHOCYTES % (MANUAL) 13 % (20-40); MONOCYTES % (MANUAL) 6 % (2-10); NEUTROPHILS % (MANUAL) 75 % (42-75)
--- NOTE | 2017-06-29 07:00 | NUR ---
No significant events overnight. Slight improvement in mental status. Arousable to sound/touch stimuli. Although weak, patient is able to squeeze hands when prompted. Afebrile through shift. A-fib with RVR, HR 130-150. Hypotension managed with Levophed, titrating rate down. Currently at 5mcg/min. IVF and IV drips running as ordered. PICC RUE, peripheral IV to L AC and R AC; all patent and intact. ETT 7.5 at 25cm lip. Vent setting remain at AC16, Vt 500, PEEP 5, FiO2 30%. NGT to R nare, low intermittent suction; total 200 mL during shift. Flexiseal total 100 mL. Green cath intact and patent with 100 mL output. 1st step mattress. Needs attended to.
[2017-06-29] MEDS: MEROPENEM 500 MG in IV NORMAL SALINE 50 ML IV SCH ×2 (08:00→20:48)
[2017-06-29] MEDS: PANTOPRAZOLE SODIUM 40 MG VIAL IV SCH ×2 (08:02→20:49)
--- NOTE | 2017-06-29 09:12 | NUR ---
PT RECEIVED ORALLY INTUBATED WITH A 7.5 ET TUBE 26CM AT THE LIP ON VO VENT WITH SETTINGS OF AC 16, VT500, PEEP +5, FIO2 30%. ANCHOR-FAST IS SECURE WITH GOOD SKIN INTEGRITY. ALARMS ARE ON AND AUDIBLE, AMBU-BAG IS AT BEDSIDE. PT SUCTIONED MODERATE AMOUNT OF CLEAR AND WHITE SECRETIONS. ORAL CARE DONE, ET TUBE WAS MOVED TO THE CENTER. PT IS TOLERATING VENT SETTINGS WELL, SHOWING NO SIGNS OF RESPIRATORY DISTRESS AT THIS TIME. WILL CONTINUE TO MONITOR.
--- NOTE | 2017-06-29 09:30 | NUR ---
Dr. noriega in the unit to examine patient. informed of urine output. see orders.
[2017-06-29] MEDS ORDERED: VANCOMYCIN IV 1 G in PREMIXED 0 EACH IV ONE (10:00)
--- NOTE | 2017-06-29 11:45 | NUR ---
Dr. Hernandez in the unit to examine patient; full report given.
--- NOTE | 2017-06-29 13:15 | NUR ---
Dr. Mcnair pulmonary services in the unit to examine patient; full report given. also updated pt's partner who remains at bedside.
[2017-06-29] MEDS: OCTREOTIDE ACETATE DRIP 1,250 MCG in IV NORMAL SALINE 247.5 ML IV PRN (14:10)
[2017-06-29] MEDS: HYDROMORPHONE 1 MG/1 ML DISP.SYRIN IV PRN (14:25)
--- NOTE | 2017-06-29 14:28 | NUR ---
Clinical pharmacy note-Vancomycin dosing per pharmacy Subjective: Vancomycin to continue for this 67 YO male patient for sepsis, UTI (recent chemo) Objective: ht 70'' wt 166 lb bun /scr 71/4.3(ARF) wbc 10.4 temp 98.8 Vancomycin random 17.4 today am A/P: will continue to dose by fall off level due to elevated srcr. Vanco 1 gm IVPB x1 was given today at 1000. Next random ordered on 07/01 with am labs. Pharmacy shall check srcr in am and dose as needed. Will monitor daily.
[2017-06-29 14:37] LABS: BILIRUBIN,TOTAL 7.6 mg/dL (0.2-1.0); CREATININE 4.6 mg/dL (0.6-1.3); POTASSIUM 4.6 mmol/L (3.5-5.1); TOTAL PROTEIN, SERUM 6.9 g/dL (6.4-8.2)
--- NOTE | 2017-06-29 16:50 | NUR ---
A call from GI services RADIO SCRIPT WRITER Lupe Bergman with orders to discontinue Sandostatin on 06/30/17. at 0700. and continue with protonix drip BID.
--- NOTE | 2017-06-29 17:05 | NUR ---
Dr. Ventura cardiology services in the unit to examine patient; report given, no orders received.
[2017-06-29] MEDS: MICAFUNGIN SODIUM 100 MG in IV NORMAL SALINE 100 ML IV SCH (18:05)
[2017-06-29] MEDS: NOREPINEPHRINE BITARTRATE 16 MG in IV DEXTROSE 5% 500 ML IV PRN (18:06)
--- NOTE | 2017-06-29 20:00 | NUR ---
RECEIVED PT.OPENS HIS TO VERBAL STIMULI. ORALLY INTUBATED TO VENT W/ SETTINGS OF AC-16, TV-600, FIO2-50%,PEEP-+5, W/ O2 SAT OF 98%. SUCTIONED VIA ETT & ORALLY W/ MINIMAL AMT OF THIN WHITISH TO TANNISH MUCOUS. NGT ON R NARE OFF SUCTIONED ORDERED. ON LEVOPHED DRIP @ 4MCQ/MIN VIA PICC LINE ON LA. SANDOSTATIN DRIP @ 50MCQ/HR. IVF D5NS @ 75CC/HR. FLEXISEAL INTACT W/ GREENISH LIQUIDISH STOOL. HS CARE DONE, ORAL CARE DONE. REPOSITIONED ON HIS SIDE W/ HOB ELEVATED.
--- NOTE | 2017-06-29 22:00 | NUR ---
RECEIVED PATIENT ORALLY INTUBATED ON A MECHANICAL VENT. PATIENT IS INTUBATED WITH A 7.5 ET TUBE. ET TUBE IS 26CM AT THE LIP. VENT SETTINGS ARE: AC 16, VT 500, PEEP +5, 30% FIO2. ALARMS CHECKED AND THEY ARE ON AND AUDIBLE. ANCHOR-FAST IS SECURED WITH GOOD SKIN INTEGRITY. SUCTIONED A MODERATE AMOUNT OF WHITE AND YELLOWISH SECRETIONS. RECEIVED PATIENT WITH ET TUBE ON THE RIGHT. MOVED ET TUBE TO THE CENTER. HME CHANGED. WILL DO ORAL CARE LATER. NO SOB NOTED AT THIS TIME. PATIENT IS TOLERATING CURRENT VENT SETTINGS WELL. WILL CONTINUE TO MONITOR PATIENT
--- NOTE | 2017-06-29 22:21 | NUR ---
FFP TRANSFUSION HUNG, V/S TAKEN & RECORDED.
[2017-06-30] VITALS (88 sets, daily range): BP systolic 82–134; BP diastolic 51–79
--- NOTE | 2017-06-30 02:54 | NUR ---
HUNG PLATELET LEUCOPOOR & DONE @ 0400 V/S RECORDED, UNABLE TO END THE DOCUMENTATION.
--- NOTE | 2017-06-30 02:54 | NUR ---
FFP INFUSED & DONE.
--- NOTE | 2017-06-30 02:54 | NUR ---
transfused ffp unable to document the end of transfusion.
--- NOTE | 2017-06-30 04:30 | NUR ---
AM CARE DONE. ORAL CARE DONE. REPOSITIONED W/ HOB ELEVATED. FLEXISEAL OUT X3 & REINSERTED, UNABLE TO RETAINED AFTER 4X, POOR RECTAL TONE.
[2017-06-30 05:22] LABS: BASOPHILS % (AUTO) 0.2 % (0.0-2.0); EOSINOPHILS % (AUTO) 0.2 % (0.0-7.0); HEMATOCRIT 32.1 % (40-50); LYMPHOCYTES # (AUTO) 1.2 K/UL (0.8-4.8); LYMPHOCYTES % (AUTO) 7.3 % (20.5-51.5); MEAN CORPUSCULAR HGB CONC 31 g/dL (32.0-37.0); MONOCYTES # (AUTO) 0.8 K/UL (0.1-1.30); MONOCYTES % (AUTO) 4.7 % (0.0-11.0); NEUTROPHILS % (AUTO) 87.6 % (38.5-71.5); RED BLOOD CELL COUNT(AUTO) 2.94 MIL/UL (4.7-6.1)
[2017-06-30 05:29] LABS: PLATELET COUNT (AUTO) 30 K/UL (150-450)
[2017-06-30 05:35] LABS: BILIRUBIN,TOTAL 8.9 mg/dL (0.2-1.0); MAGNESIUM 2.2 mg/dL (1.8-2.4); POTASSIUM 4.7 mmol/L (3.5-5.1); TOTAL PROTEIN, SERUM 7.2 g/dL (6.4-8.2)
[2017-06-30 05:44] LABS: PHOSPHOROUS 9.4 mg/dL (2.5-4.9)
--- NOTE | 2017-06-30 06:00 | NUR ---
PT REMAIN LETHARGIC, ON LEVOPHED @ 4MCQ/MIN.
[2017-06-30 06:04] LABS: FERRITIN 1572 ng/mL (26-388); LACTATE DEHYDROGENASE 680 U/L (85-227)
[2017-06-30 07:03] LABS: IRON, SERUM 247 ug/dL (50-175)
--- NOTE | 2017-06-30 07:10 | NUR ---
report received from Reagan RYAN. 67 yr old male was admitted on 06/26 for sepsis, aloc, weakness and diarrhea.was intubated in ED, had fluid challenges. remains on levophed drip @ 4mcg/min, sandostatin drip @50mcg/hr, main IV fluid D5NS at 75ml/hr. all iv fluids infusing via gabe PICC line. IV saline lock via lac.. patient orally intubated, ett to vent tv 500, ac 16, peep 5cm fio2 30%. patient has agonal breathing, not assisting ventilator. oral care done. has foaming in the mouth. diaz catheter intact, oliguric, urine dark tea colored, has multiple skin breakdowns. ekg is atrial fib 130/min. aware. Addendum: 06/30/17 at 0849 by LONI MANZANARES RN Amended: Links added.
[2017-06-30] MEDS ORDERED: DEXTROSE 50% 50 ML DISP.SYRIN IV ONE (07:45)
--- NOTE | 2017-06-30 07:49 | NUR ---
blood sugar 35 per lab drawn at 0445. call to dr Ortiz. orders received. D50% 50ml given IV Addendum: 06/30/17 at 0749 by LONI MANZANARES RN Amended: Links added.
[2017-06-30] MEDS: MEROPENEM 500 MG in IV NORMAL SALINE 50 ML IV SCH ×2 (08:00→21:32)
[2017-06-30 08:34] LABS: BAND % (MANUAL) 5 % (0-10); EOSINOPHILS % (MANUAL) 1 % (0-8); LYMPHOCYTES % (MANUAL) 9 % (20-40); METAMYELOCYTES % 3 % (0-1); MONOCYTES % (MANUAL) 4 % (2-10); MYELOCYTES % 2 % (0-0); NEUTROPHILS % (MANUAL) 76 % (42-75)
[2017-06-30] MEDS: PANTOPRAZOLE SODIUM 40 MG VIAL IV SCH ×2 (09:03→21:33)
[2017-06-30] MEDS ORDERED: LIDOCAINE/PRILOCAINE 5 GM CREAM.GM. TP PRN (09:15)
[2017-06-30] MEDS ORDERED: LIDOCAINE HCL 1% 20 ML VIAL MC PRN (09:15)
--- NOTE | 2017-06-30 09:19 | NUR ---
RECEIVED THE PT AROUND 8AM ORALLY INTUBATED WITH THE VENT SETTINGS OF AC 16 VT 500 FIO2 30% PEEP +5. CIRCUIT ARE WELL CONNECTED TO THE VENT. ALARMS ARE WORKING AND AUDIBLE. ET TUBE IS PLACED AND SECURED AT 26CM OF THE LIP. DID MOVED THE PATIENT'S ET TUBE FROM LEFT TO RIGHT SIDE. SUCTIONED THE PT'S AIRWAY WITH BUBBLY SECRETIONS. VENT IS PLUGGED IN THE RED OUTLET. WILL CONTINUE TO MONITOR THROUGHOUT THE SHIFT
--- NOTE | 2017-06-30 09:30 | NUR ---
seen by dr Nettles with no new orders Addendum: 06/30/17 at 1058 by LONI MANZANARES RN Amended: Links added.
--- NOTE | 2017-06-30 11:30 | NUR ---
seen by dr Mcnair with no new orders Addendum: 06/30/17 at 1314 by LONI MANZANARES RN Amended: Links added.
[2017-06-30] MEDS: NOREPINEPHRINE BITARTRATE 16 MG in IV DEXTROSE 5% 500 ML IV PRN (14:26)
--- NOTE | 2017-06-30 14:30 | NUR ---
skin care done with pm care Addendum: 06/30/17 at 1819 by LONI MANZANARES RN Amended: Aislinn added. Addendum: 06/30/17 at 182 by LONI MANZANARES RN Amended: Aislinn added. Addendum: 06/30/17 at 1822 by LONI MANZANARES RN Amended: Links added.
[2017-06-30] MEDS: IV D5/ 0.9% NACL 1,000 ML IV PRN (15:32)
--- NOTE | 2017-06-30 16:00 | NUR ---
call to dr delcid for persistent hypotension and repaid atrial fib. message left to office to call back Addendum: 06/30/17 at 1638 by LONI MANZANARES RN Amended: Links added.
--- NOTE | 2017-06-30 16:33 | NUR ---
Clinical pharmacy note-Vancomycin dosing per pharmacy Subjective: Vancomycin to continue for this 67 YO male patient for sepsis, UTI (recent chemo) Objective: ht 70'' wt 166 lb bun /scr 7.3/5.0 (ARF) wbc 16 temp 98.3 Vancomycin random 17.4 06/29 am labs A/P: will continue to dose by fall off level due to elevated srcr. Vanco 1 gm IVPB x1 was given yesterday at 1000. Next random ordered on 07/01 with am labs. Pharmacy shall check srcr in am and dose as needed. Will monitor daily.
[2017-06-30] MEDS ORDERED: HEPARIN SODIUM,PORCINE/PF 100 UNIT/ML, 5ML SYR IV PRN (17:00)
--- NOTE | 2017-06-30 17:00 | NUR ---
junie, partner here at bedside. allowed to ask questions. condition report given Addendum: 06/30/17 at 1822 by LONI MANZANARES RN Amended: Links added.
[2017-06-30] MEDS: OCTREOTIDE ACETATE DRIP 1,250 MCG in IV NORMAL SALINE 247.5 ML IV PRN (17:07)
[2017-06-30] MEDS: NORMAL SALINE FLUSH 10 ML DISP.SYRIN IV PRN (17:19)
--- NOTE | 2017-06-30 18:00 | NUR ---
had been npo since admission, no nutritional support initiated Addendum: 06/30/17 at 182 by LONI MANZANARES RN Amended: Aislinn added. Addendum: 06/30/17 at 1821 by LONI MANZANARES RN Amended: Links added.
[2017-06-30] MEDS: MICAFUNGIN SODIUM 100 MG in IV NORMAL SALINE 100 ML IV SCH (19:03)
--- NOTE | 2017-06-30 19:31 | NUR ---
report given to Reagan joseph. Addendum: 06/30/17 at 1931 by LONI MANZANARES RN Amended: Links added.
--- NOTE | 2017-06-30 20:00 | NUR ---
RECEIVED PT. OBTUNDED, ORALLY INTUBATED TO VENT W/ SETTINGS OF AC-16, TV-500, FIO2-30%, PEEP-+5, W/ O2 SAT OF 98%.ORAL CARE DONE AFTER SUCTIONED ORALLY & VIA ETT W/ MODERATE WHITISH TO TANNISH THIN MUCOUS. NGT ON R NARE & CLAMPED. ON LEVOPHED DRIP @ 10MCQ/MIN VIA PICC LINE ON LA. SANDOSTATIN DRIP @ 50MCQ/HR ON LFA. IVF D5NS @ 75CC/HR. BRAGA CATH IN PLACE DRAINING TO TEA COLOR SCANTY AMT. REPOSITIONED ON HIS SIDE W/ HOB ELEVATED.
--- NOTE | 2017-06-30 20:03 | NUR ---
Pt rec'd on Marcelo on settings of A/C 16, VT 500, FIO2-30% and PEEP+5. No resp. distress noted at this time. BVM at bedside. 7.[address], patent and secure at approx. 26 cm now at the left lip side after repositioning. Oral care done. Pt to be monitored throughout the shift and PRN SX. Marcelo is plugged into the red power outlet. Marcelo alarm parameters have been checked and are audible at this time.
[2017-06-30] MEDS ORDERED: HYDROMORPHONE 2 MG/1 ML DISP.SYRIN IV PRN (20:45)
--- NOTE | 2017-06-30 21:30 | NUR ---
DR Maisha ELENA CAME, UPDATED PT STATUS, AWARE OF HR-130-140S , NO ORDER GIVEN.
[2017-06-30] MEDS: NORMAL SALINE FLUSH 10 ML DISP.SYRIN IV SCH (21:33)
--- NOTE | 2017-06-30 22:00 | NUR ---
HS CARE DONE. SUCTIONED & ORAL CARE DONE.
[2017-07-01] VITALS (89 sets, daily range): BP systolic 81–115; BP diastolic 45–77
--- NOTE | 2017-07-01 04:30 | NUR ---
AM CARE DONE. ORAL CARE DONE.. REPOSITIONED W/ HOB ELEVATED.
--- NOTE | 2017-07-01 05:02 | NUR ---
Pt remains on Marcelo with no changes made to the ventilator settings. No resp. distress noted throughout the shift. Pt was routinely sx'd and appeared to tolerate continuous mechanical ventilator settings well. BVM at bedside. 7.[address], patent and secure at approx. 26cm now at the left lip side. Marcelo alarm parameters have been checked and remain audible.
--- NOTE | 2017-07-01 06:00 | NUR ---
REMAINS OBTUNDED.ON LEVOPHED @ 15MCQ/MIN. AT THIS TIME.
[2017-07-01 06:04] LABS: BASOPHILS # (AUTO) 0.1 K/uL (0.0-8.0); BASOPHILS % (AUTO) 0.5 % (0.0-2.0); EOSINOPHILS % (AUTO) 0.1 % (0.0-7.0); HEMATOCRIT 32.5 % (40-50); HEMOGLOBIN 10.3 G/DL (14.0-18.0); LYMPHOCYTES # (AUTO) 1.7 K/UL (0.8-4.8); LYMPHOCYTES % (AUTO) 8.9 % (20.5-51.5); MEAN CORPUSCULAR HEMOGLOBIN 34.5 UUG (27.0-31.0); MEAN CORPUSCULAR HGB CONC 32 g/dL (32.0-37.0); MEAN CORPUSCULAR VOLUME 109.1 FL (82.0-92.0); MONOCYTES # (AUTO) 1.4 K/UL (0.1-1.30); NEUTROPHILS # (AUTO) 16.4 K/UL (1.8-8.9); NEUTROPHILS % (AUTO) 83.5 % (38.5-71.5); RED BLOOD CELL COUNT(AUTO) 2.98 MIL/UL (4.7-6.1); WHITE BLOOD COUNT (AUTO) 19.6 K/UL (4.0-11.2)
[2017-07-01 06:10] LABS: PLATELET COUNT (AUTO) 31 K/UL (150-450)
[2017-07-01 06:15] LABS: BILIRUBIN,TOTAL 11.5 mg/dL (0.2-1.0); CREATININE 5.2 mg/dL (0.6-1.3); POTASSIUM 5.1 mmol/L (3.5-5.1)
[2017-07-01] MEDS: IV D5/ 0.9% NACL 1,000 ML IV PRN ×2 (06:24→23:08)
[2017-07-01 06:26] LABS: MAGNESIUM 2.2 mg/dL (1.8-2.4)
[2017-07-01 06:32] LABS: PHOSPHOROUS 9.8 mg/dL (2.5-4.9)
[2017-07-01] MEDS ORDERED: DEXTROSE 50% 50 ML DISP.SYRIN IV ONE (07:00)
[2017-07-01 07:06] LABS: *IMMUNOGLOBULIN G, SERUM 1605 mg/dL (700-1600); IMMUNOGLOBULIN A, SERUM 352 mg/dL (61-437); IMMUNOGLOBULIN M, SERUM 477 mg/dL (20-172)
--- NOTE | 2017-07-01 07:15 | NUR ---
report received from Reagan RYAN. patient remains obtunded, orally intubated. ett to vent tv 500 ac 16, peep 5cm, fio2 30%. agonal breathing, assisting vent occasionally. lungs rale and rhonchi more left side than right side. oral care done frequently. on levophed drip at 15mcg/min. ekg rapid afib rate 130-140/min. afebrile. on sandostatin drip for gi bleed, has multiple skin bruisings and skin breaks. on air mattress. diaz catheter intact is anuric. double lumen PICC line intact via gabe. left ac IV saline lock intact. right ac IV line intact/ Addendum: 07/01/17 at 0920 by LONI MANZANARES RN Amended: Links added.
--- NOTE | 2017-07-01 08:00 | NUR ---
remains edematous including scrotal edema. also, heels and toes are cyanotic. heels are offloaded at alltimes Addendum: 07/01/17 at 1849 by LONI MANZANARES RN Amended: Links added. Addendum: 07/01/17 at 1852 by LONI MANZANARES RN Amended: Links added. Addendum: 07/01/17 at 1854 by LONI MANZANARES RN Amended: Links added. Addendum: 07/01/17 at 1858 by LONI MANZANARES RN Amended: Links added.
[2017-07-01 08:04] LABS: VANCOMYCIN,RANDOM 27.1 ug/mL (18.0-26.0)
[2017-07-01] MEDS: PANTOPRAZOLE SODIUM 40 MG VIAL IV SCH ×2 (08:05→20:32)
[2017-07-01 08:06] LABS: CARBOHYDRATE ANTIGEN, 19-9 35 U/mL (0-35)
[2017-07-01] MEDS: NORMAL SALINE FLUSH 10 ML DISP.SYRIN IV SCH ×2 (08:06→20:31)
[2017-07-01] MEDS: MEROPENEM 500 MG in IV NORMAL SALINE 50 ML IV SCH ×2 (08:18→20:31)
[2017-07-01] MEDS: NOREPINEPHRINE BITARTRATE 16 MG in IV DEXTROSE 5% 500 ML IV PRN (09:37)
[2017-07-01 09:56] LABS: BAND % (MANUAL) 8 % (0-10); LYMPHOCYTES % (MANUAL) 11 % (20-40); MONOCYTES % (MANUAL) 7 % (2-10); NEUTROPHILS % (MANUAL) 74 % (42-75)
[2017-07-01 13:00] LABS: ABG BASE EXCESS -18.4 mmol/L; ABG HCO3 9.2 mmol/L; ABG PCO2 27.6 mmHg (35.0-45.0); ABG PO2 86.5 mmHg (75.0-100.0); ABG SITE LEFT RADIAL; ABG TOTAL HEMOGLOBIN 10.7 G/dL (13.5-18.0); COHb 1.2 % (0.5-1.5); MetHb 0.4 % (0.0-1.5); O2Hb 93.5 % (94.0-97.0); VENT MODE VENT - A/C; VT, ABG 500 mL
--- NOTE | 2017-07-01 13:00 | NUR ---
seen by dr Coreas. ruben drawn ph 7.14. orders received. propofol drip resumed. ac increased to 24 and tv increased to 550. will give 2 amps sodium bicarbonate. Addendum: 07/01/17 at 1430 by LONI MANZANARES RN Amended: Links added.
[2017-07-01] MEDS: PROPOFOL 100 ML IV PRN (13:03)
[2017-07-01] MEDS ORDERED: SODIUM BICARBONATE 8.4% 50 MEQ/50 ML DISP.SYRIN IV ONE (13:15)
--- NOTE | 2017-07-01 13:21 | NUR ---
seen by dr foley, nephrology. no new orders Addendum: 07/01/17 at 1321 by LONI MANZANARES RN Amended: Links added.
[2017-07-01] MEDS: NORMAL SALINE FLUSH 10 ML DISP.SYRIN IV PRN (14:13)
--- NOTE | 2017-07-01 14:28 | NUR ---
Patient has no active bleeding . call to dr shayne ortiz. message left to call back. Addendum: 07/01/17 at 1428 by LONI MANZANARES RN Amended: Links added. Addendum: 07/01/17 at 1430 by LONI MANZANARES RN Amended: Links added.
--- NOTE | 2017-07-01 14:30 | NUR ---
skin care done with pm care. had diarrhiec stools. specimen sent to lab for cdiff Addendum: 07/01/17 at 1854 by LONI MANZANARES RN Amended: Links added. Addendum: 07/01/17 at 1857 by LONI MANZANARES RN Amended: Links added.
--- NOTE | 2017-07-01 14:51 | NUR ---
Clinical pharmacy note-Vancomycin dosing per pharmacy Subjective: Vancomycin to continue for this 67 YO male patient for sepsis, UTI (recent chemo) Objective: ht 70'' wt 166 lb bun /scr 75/5.2 (ARF) wbc 19.6 temp 98 Vancomycin random 27.1 with am labs A/P: will continue to dose by fall off level due to elevated srcr. Vanco 1 gm IVPB x1 was given 06/29 at 1000. Based on today's random, no dose for today. Ordered another random with tomorrow am labs. Will check level and re-dose as needed. Will monitor daily.
--- NOTE | 2017-07-01 15:03 | NUR ---
abdirizak silva will start tube fdg. Addendum: 07/01/17 at 1503 by LONI MANZANARES RN Amended: Links added. Addendum: 07/01/17 at 1508 by LONI MANZANARES RN Amended: Links added.
--- NOTE | 2017-07-01 15:06 | NUR ---
seen by dr zaragoza. new orders received. Addendum: 07/01/17 at 1508 by LONI MANZANARES RN Amended: Links added.
[2017-07-01] MEDS: NUTREN 1.5 1000ML BAG GT PRN (15:29)
--- NOTE | 2017-07-01 15:53 | NUR ---
tube fdg nutren 1.5 started at 10ml/hr via ngt.. hob elevated >30 degrees bp 92/72 Addendum: 07/01/17 at 1553 by LONI MANZANARES RN Amended: Links added. Addendum: 07/01/17 at 1555 by LONI MANZANARES RN Amended: Links added.
--- NOTE | 2017-07-01 15:55 | NUR ---
tube fdg nutren 1.5 started at 10ml/hr via ngt.. hob elevated >30 degrees bp 92/72 Addendum: 07/01/17 at 1555 by LONI MANZANARES RN Amended: Links added.
--- NOTE | 2017-07-01 16:00 | NUR ---
junie, partner came to visit. condition report given. junie left and [address] figueredo here, talked to the patient's nieces. dr rice will also call junie. Addendum: 07/01/17 at 1858 by LONI MANZANARES RN Amended: Links added.
[2017-07-01] MEDS: MICAFUNGIN SODIUM 100 MG in IV NORMAL SALINE 100 ML IV SCH (18:11)
--- NOTE | 2017-07-01 18:52 | NUR ---
remains anuric all day, but had small amount blood tinged urine output, approximately 20ml Addendum: 07/01/17 at 1852 by LONI MANZANARES RN Amended: Links added. Addendum: 07/01/17 at 1854 by LONI MANZANARES RN Amended: Links added. Addendum: 07/01/17 at 1857 by LOIN MANZANARES RN Amended: Links added.
--- NOTE | 2017-07-01 19:19 | NUR ---
report given to Maury Addendum: 07/01/17 at 1919 by LONI MANZANARES RN Amended: Links added.
--- NOTE | 2017-07-01 20:00 | NUR ---
RECEIVED PT. OBTUNDED, ORALLY INTUBATED TO VENT W/ SETTINGS OF AC-24, TV-550, FIO2-30%, PEEP-+5,W/ O2 SAT OF 98%. SUCTIONED ORALLY & VIA ETT W/ MOD. THICK TANNISH MUCOUS. NGT ON R NARE, CHECKED PLACEMENT & RESIDUAL NONE NOTED. ON TUBE FDG OF NUTREN 1.5 @ 10CC/HR. ON LEVOPHED DRIP @ 17MCQ/MIN VIA PICC LINE ON LA. IVF D5NS @ 75CC/HR. DIPRIVAN DRIP @ 15MCQ/KG/MIN. REPOSITIONED PT. ON HIS SIDE W/ HOB ELEVATED 30 DEGREES CONT.
--- NOTE | 2017-07-01 20:11 | NUR ---
DR. LANCASTER WAS HERE W/ ORDER.
[2017-07-01] MEDS ORDERED: PHENYLEPHRINE 10 MG/1 ML VIAL ONE (20:25)
[2017-07-01] MEDS: PHENYLEPHRINE IV 20 MG in IV DEXTROSE 5% 250 ML IV PRN (20:29)
--- NOTE | 2017-07-01 20:29 | NUR ---
HUNG NEOSYNEPHRINE DRIP @ 40MCQ/MIN. ORDERED.
--- NOTE | 2017-07-01 21:14 | NUR ---
PT RECEIVED ORALLY INTUBATED ON VO VENT WITH SETTINGS OF AC 24, VT550, PEEP +5, FIO2 30%. SIZE 7.5 ET TUBE IS SECURE WITH ANCHOR-FAST, 26CM AT THE LIP WITH GOOD SKIN INTEGRITY. ALARMS ARE ON AND AUDIBLE, AMBU-BAG IS AT BEDSIDE. PT SUCTIONED MODERATE AMOUNT OF CLEAR AND WHITE SECRETIONS. ORAL CARE DONE, ET TUBE WAS MOVED TO THE RIGHT. WILL CONTINUE TO MONITOR.
[2017-07-01] MEDS ORDERED: METRONIDAZOLE 500 MG/NS 100ML 100 ML IV ONE ×2 (21:20→23:22)
[2017-07-01] MEDS: METRONIDAZOLE 500 MG/NS 100ML 500 MG in PREMIXED 1 EACH IV SCH (21:40)
--- NOTE | 2017-07-01 22:00 | NUR ---
SPUTUM SAMPLE COLLECTED, AND DROPPED OFF IN LAB. RN IS AWARE AND NOTIFIED.
[2017-07-02] VITALS (84 sets, daily range): BP systolic 65–146; BP diastolic 42–100
--- NOTE | 2017-07-02 | NUR ---
CHECKED RESIDUAL NONE NOTED, INCREASED TUBE FDG RATE TO 20CC/HR. REPOSITIONED W/ HOB ELEVATED.
[2017-07-02] MEDS: PHENYLEPHRINE IV 20 MG in IV DEXTROSE 5% 250 ML IV PRN ×3 (00:55→07:26)
[2017-07-02] MEDS ORDERED: PHENYLEPHRINE 10 MG/1 ML VIAL ONE ×2 (01:05→03:55)
[2017-07-02] MEDS: PROPOFOL 100 ML IV PRN ×3 (01:23→16:45)
--- NOTE | 2017-07-02 04:00 | NUR ---
AM CARE DONE. ORAL CARE DONE AFTER EACH SUCTIONED. INCONT. OF STOOL. REPOSITIONED W/ HOB ELEVATED. RESIDUAL CHECKED 5CC NOTED. CONT.FDG @ 20CC/HR.
[2017-07-02] MEDS: METRONIDAZOLE 500 MG/NS 100ML 500 MG in PREMIXED 1 EACH IV SCH ×3 (05:50→22:06)
[2017-07-02 06:00] LABS: CREATININE 5.8 mg/dL (0.6-1.3); MAGNESIUM 2.2 mg/dL (1.8-2.4); PHOSPHOROUS 6.7 mg/dL (2.5-4.9); VANCOMYCIN,RANDOM 23.3 ug/mL (18.0-26.0)
--- NOTE | 2017-07-02 06:00 | NUR ---
CLEANED PT. FOR INCONT.OF STOOL.
[2017-07-02 06:09] LABS: BASOPHILS # (AUTO) 0.1 K/uL (0.0-8.0); BASOPHILS % (AUTO) 0.7 % (0.0-2.0); EOSINOPHILS # (AUTO) 0.1 K/uL (0.0-0.7); EOSINOPHILS % (AUTO) 0.4 % (0.0-7.0); HEMATOCRIT 29.3 % (40-50); HEMOGLOBIN 9.6 G/DL (14.0-18.0); LYMPHOCYTES # (AUTO) 1.7 K/UL (0.8-4.8); LYMPHOCYTES % (AUTO) 12.4 % (20.5-51.5); MEAN CORPUSCULAR HEMOGLOBIN 34.4 UUG (27.0-31.0); MEAN CORPUSCULAR HGB CONC 33 g/dL (32.0-37.0); MEAN CORPUSCULAR VOLUME 104.7 FL (82.0-92.0); MONOCYTES # (AUTO) 1.5 K/UL (0.1-1.30); MONOCYTES % (AUTO) 10.8 % (0.0-11.0); NEUTROPHILS # (AUTO) 10.7 K/UL (1.8-8.9); NEUTROPHILS % (AUTO) 75.7 % (38.5-71.5); RED BLOOD CELL COUNT(AUTO) 2.79 MIL/UL (4.7-6.1); WHITE BLOOD COUNT (AUTO) 14.1 K/UL (4.0-11.2)
[2017-07-02 06:15] LABS: PLATELET COUNT (AUTO) 23 K/UL (150-450)
[2017-07-02] MEDS: NOREPINEPHRINE BITARTRATE 16 MG in IV DEXTROSE 5% 500 ML IV PRN (07:26)
--- NOTE | 2017-07-02 07:40 | NUR ---
RECEIVED PT ON CONTINUOUS VENT AC 24 VT 550 PEEP 5 FIO2 30%. ETT 7.5 SECURED AT 26 CM LIP LINE VIA ANCHOR FAST. BS DIMINISHED BILAT. ORAL CARE DONE. SUCTION PRN. AMBU BAG AT BEDSIDE. VENT CHECKED, ALARMS WORKING WELL AND AUDIBLE. ABG DRAWN AND MD AWARE OF RESULTS. NO VENT CHANGES MADE. WILL CONTINUE TO MONITOR.
[2017-07-02 08:37] LABS: BILIRUBIN,DIRECT 9.4 mg/dL (0.0-0.2); TOTAL PROTEIN, SERUM 6.2 g/dL (6.4-8.2)
[2017-07-02 08:40] LABS: BILIRUBIN,TOTAL 12.8 mg/dL (0.2-1.0)
[2017-07-02] MEDS: MEROPENEM 500 MG in IV NORMAL SALINE 50 ML IV SCH ×2 (09:00→20:39)
[2017-07-02] MEDS: NORMAL SALINE FLUSH 10 ML DISP.SYRIN IV SCH ×2 (09:00→20:39)
[2017-07-02 09:06] LABS: HEPATITIS B SURFACE AB Reactive (.); HEPATITIS B SURFACE AG Negative (Negative)
[2017-07-02] MEDS: PHENYLEPHRINE IV 80 MG in IV DEXTROSE 5% 250 ML IV PRN ×3 (10:30→22:33)
[2017-07-02] MEDS: PANTOPRAZOLE SODIUM 40 MG VIAL IV SCH ×2 (10:45→20:39)
[2017-07-02 11:49] LABS: BAND % (MANUAL) 3 % (0-10); EOSINOPHILS % (MANUAL) 2 % (0-8); LYMPHOCYTES % (MANUAL) 9 % (20-40); METAMYELOCYTES % 2 % (0-1); MONOCYTES % (MANUAL) 6 % (2-10); MYELOCYTES % 1 % (0-0); NEUTROPHILS % (MANUAL) 77 % (42-75)
--- NOTE | 2017-07-02 12:27 | NUR ---
Clinical pharmacy note-Vancomycin dosing per pharmacy Subjective: Vancomycin to continue for this 67 YO male patient for sepsis, UTI (recent chemo) Objective: ht 70'' wt 166 lb bun /scr 85/5.8 (ARF) wbc 14.1 temp 98.2 Vancomycin random 23.3 with am labs A/P: will continue to dose by fall off level due to elevated srcr. Vanco 1 gm IVPB x1 was given 06/29 at 1000. Based on today's random, no dose for today. Ordered another random with tomorrow am labs. Will check level and re-dose as needed. Will monitor daily.
[2017-07-02] MEDS: IV D5/ 0.9% NACL 1,000 ML IV PRN (14:15)
[2017-07-02] MEDS ORDERED: PHYTONADIONE 5 MG TABLET NG ONE (14:30)
--- NOTE | 2017-07-02 19:30 | NUR ---
Received patient sedated on propofol 20 mcg/kg/min. No response to painful stimuli. A-fib with RVR on monitor. Neosynephrine at 260 mcg/min, still hypotensive. Will increase rate as appropriate. ETT 7.5 at 25 cm lip line. AC 24, Vt 550, PEEP 5, FiO2 30%. NG-tube to right nare, feeding running at 30 mL/hr with moderate residual. PICC line to RUE, patent running fluids as ordered. Green cath intact, draining leilani colored fluid. On 1st step mattress. SBAR report received from CONNOR Elizabeth. Will continue plan of care.
[2017-07-02] MEDS: MICAFUNGIN SODIUM 100 MG in IV NORMAL SALINE 100 ML IV SCH (19:35)
--- NOTE | 2017-07-02 19:45 | NUR ---
PT RECEIVED ON VO VENTILATOR WITH SETTINGS OF AC 24, VT 550, PEEP +5, FIO2 30%. NO CHANGES MADE. NO S/S OF RESPIRATORY DISTRESS NOTED. PT IS ORALLY INTUBATED WITH 7.5 ETT SECURED APPROX. 26CM LIP LINE. ETT IS PATENT AND SECURED WITH ANCHOR FAST. VENT CHECK DONE. ALARMS CHECKED, ARE ON AND AUDIBLE. ORAL CARE DONE. HME CHANGED. ETT MOVED TO RIGHT SIDE OF MOUTH AT THIS TIME. LAVAGE/SUCTIONED MOD. AMOUNT OF THICK, PALE SECRETIONS. AMBU BAG IS AT BEDSIDE. WILL CONTINUE TO MONITOR.
--- NOTE | 2017-07-02 20:19 | NUR ---
Placed Sandy Hugger for rectal temperature 94.2
--- NOTE | 2017-07-02 21:22 | NUR ---
Spoke with Dr Ortiz via telephone. He clarified that patient's code status now DNR. Will continue plan of care.
--- NOTE | 2017-07-02 21:30 | NUR ---
Turned off Propofol drip for neuro assessment. Resumed as ordered by Dr. Coreas to keep patient comfortable while on mechanical ventilator. See IV Spreadsheet. PRN pain medications provided as ordered, see eMAR
--- NOTE | 2017-07-02 23:00 | NUR ---
Neosynephrine drip at maximum rate. Continues to be hypotensive. Levophed restarted at this time.
[2017-07-03] VITALS (41 sets, daily range): BP systolic 50–104; BP diastolic 33–74
--- NOTE | 2017-07-03 02:00 | NUR ---
Increased rate of tube feeding to 40 mL/hr. As ordered, increased rate by 10 mL/hr q 8hrs until goal rate of 50 mL/hr.
[2017-07-03] MEDS: PHENYLEPHRINE IV 80 MG in IV DEXTROSE 5% 250 ML IV PRN ×2 (02:36→08:50)
[2017-07-03] MEDS: IV D5/ 0.9% NACL 1,000 ML IV PRN (05:01)
[2017-07-03] MEDS: METRONIDAZOLE 500 MG/NS 100ML 500 MG in PREMIXED 1 EACH IV SCH (05:24)
--- NOTE | 2017-07-03 06:00 | NUR ---
Tube feeding off, to resume at 0800 at 40 mL/hr.
[2017-07-03 07:07] LABS: A/G RATIO 0.9 (0.7-1.7); ALBUMIN 3.2 g/dL (2.9-4.4); ALPHA-1-GLOBULIN 0.3 g/dL (0.0-0.4); ALPHA-2-GLOBULIN 0.4 g/dL (0.4-1.0); BETA GLOBULIN 0.8 g/dL (0.7-1.3); GAMMA GLOBULIN 1.9 g/dL (0.4-1.8); GLOBULIN, TOTAL 3.5 g/dL (2.2-3.9); M-SPIKE 0.1 g/dL (Not Observed)
--- NOTE | 2017-07-03 07:15 | NUR ---
ort received from [facility]. 67yr old male who was admitted on 06/26/17 for respiratory failure, renal failure, liver failure and septic shock. remains orally intubated. ett to vent tv 550, ac 24, fio2 30%. remains on levophed drip and neosynephrine drip to keep sbp >90. PICC line double lumen catheter. intact via gabe. diaz catheter intact urine is bloody but very scanty. ekg is rapid atrial fib.patient remains on propofol to keep comfortable while on ventilator Addendum: 07/03/17 at 1001 by LONI MANZANARES RN Amended: Links added.
[2017-07-03] MEDS: NUTREN 1.5 1000ML BAG GT PRN (07:57)
[2017-07-03] MEDS: NOREPINEPHRINE BITARTRATE 16 MG in IV DEXTROSE 5% 500 ML IV PRN (08:51)
[2017-07-03] MEDS: NORMAL SALINE FLUSH 10 ML DISP.SYRIN IV SCH (08:52)
--- NOTE | 2017-07-03 09:20 | NUR ---
seen by dr adelson. cristopher mar orders Addendum: 07/03/17 at 1003 by LONI MANZANARES RN Amended: Aislinn added. Addendum: 07/03/17 at 1004 by LONI MANZANARES RN Amended: Aislinn patterson.
--- NOTE | 2017-07-03 10:04 | NUR ---
seen by dr idoko. nicholas new orders Addendum: 07/03/17 at 1004 by LONI MANZANARES RN Amended: Links added.
--- NOTE | 2017-07-03 10:57 | NUR ---
Mr Richards at the bedside. Dr figueredo here and discussed plan of care. orders received. all meds discontinued. will satrt on aditya ortiz Addendum: 07/03/17 at 1058 by LONI MANZANARES RN Amended: Links added.
[2017-07-03] MEDS ORDERED: DEXTROSE 5% IV PRN (11:00)
[2017-07-03] MEDS ORDERED: HYDROMORPHONE HP IV PRN (11:00)
[2017-07-03] MEDS ORDERED: DRIP IV PRN (11:00)
[2017-07-03 12:07] LABS: *IMMUNOFIXATION RESULT Note: (.)
[2017-07-03] MEDS ORDERED: HYDROMORPHONE 2 MG/1 ML DISP.SYRIN IV ONE (12:45)
[2017-07-03] MEDS ORDERED: MORPHINE SULFATE PF IV DRIP 250 MG in IV DEXTROSE 5% 240 ML IV PRN ×2 (12:45→17:30)
--- NOTE | 2017-07-03 12:55 | NUR ---
dilaudid drip unable to start secondary to incompatible IV pump/ unable to program current concentration on hand. pharmacy unable to change concentration. call to dr figueredo. received order for 2mg IV dilaudid times 1 x dose, drip changed to morphine drip. Addendum: 07/03/17 at 1255 by LONI MANZANARES RN Amended: Links added.
--- NOTE | 2017-07-03 13:06 | NUR ---
morphine drip started at 2mg/hr IV drip Addendum: 07/03/17 at 1306 by LONI MANZANARES RN Amended: Links added.
--- NOTE | 2017-07-03 13:25 | NUR ---
PT EXTUBATED TO NC. COMFORT CARE MEASURES ORDERED. ORAL/ETT SXN'ING DONE. NGT PULLED ALONG WITH ETT. PT COMFORTABLE PLACED TO NC 2L.
--- NOTE | 2017-07-03 13:40 | NUR ---
extubated at placed on 2 l nc Addendum: 07/03/17 at 1341 by LONI MANZANARES RN Amended: Links added.
--- NOTE | 2017-07-03 15:37 | NUR ---
Friends at the bedside, allowed to grieve and spend time with the patient Addendum: 07/03/17 at 1537 by LONI MANZANARES RN Amended: Links added.
== END 2017-07-03 17:00 | disposition expired | DRG 870 ==
LOC: ER 10:31 → CCU 13:17
PROVIDERS: ADMIT Internal Medicine; ATTEND Internal Medicine
PROC: 5A1955Z Respiratory Ventilation, Greater than 96 Consecutive Hours (ICD-10-PCS; principal; 2017-06-26)
PROC: 0BH17EZ Insertion of Endotracheal Airway into Trachea, Via Natural or Artificial Opening (ICD-10-PCS; 2017-06-26)
PROC: 30233K1 Transfusion of Nonautologous Frozen Plasma into Peripheral Vein, Percutaneous Approach (ICD-10-PCS; 2017-06-26)
PROC: 30233R1 Transfusion of Nonautologous Platelets into Peripheral Vein, Percutaneous Approach (ICD-10-PCS; 2017-06-26)
PROC: 02HV33Z Insertion of Infusion Device into Superior Vena Cava, Percutaneous Approach (ICD-10-PCS; 2017-06-26)
PROC: 3E043XZ Introduction of Vasopressor into Central Vein, Percutaneous Approach (ICD-10-PCS; 2017-06-26)
DX: A41.59 Other Gram-negative sepsis (principal); D65 Disseminated intravascular coagulation [defibrination syndrome]; I21.A1 Myocardial infarction type 2; J69.0 Pneumonitis due to inhalation of food and vomit; E43 Unspecified severe protein-calorie malnutrition; J96.01 Acute respiratory failure with hypoxia; G92 Toxic encephalopathy; D61.818 Other pancytopenia; K29.01 Acute gastritis with bleeding; K72.00 Acute and subacute hepatic failure without coma; N17.0 Acute kidney failure with tubular necrosis; R65.21 Severe sepsis with septic shock; I50.43 Acute on chronic combined systolic (congestive) and diastolic (congestive) heart failure; I85.11 Secondary esophageal varices with bleeding; C77.2 Secondary and unspecified malignant neoplasm of intra-abdominal lymph nodes; Z66 Do not resuscitate; Z51.5 Encounter for palliative care; C64.2 Malignant neoplasm of left kidney, except renal pelvis; C79.51 Secondary malignant neoplasm of bone; E87.1 Hypo-osmolality and hyponatremia; E87.2 Acidosis; I42.9 Cardiomyopathy, unspecified; I13.0 Hypertensive heart and chronic kidney disease with heart failure and stage 1 through stage 4 chronic kidney disease, or unspecified chronic kidney disease; R18.8 Other ascites; N39.0 Urinary tract infection, site not specified; D50.0 Iron deficiency anemia secondary to blood loss (chronic); G62.1 Alcoholic polyneuropathy; I48.2 Chronic atrial fibrillation; Z74.01 Bed confinement status; Z88.2 Allergy status to sulfonamides; Z88.0 Allergy status to penicillin; Z91.013 Allergy to seafood; K74.60 Unspecified cirrhosis of liver; Z95.2 Presence of prosthetic heart valve; E11.22 Type 2 diabetes mellitus with diabetic chronic kidney disease; F17.210 Nicotine dependence, cigarettes, uncomplicated; E03.9 Hypothyroidism, unspecified; E83.42 Hypomagnesemia; E87.6 Hypokalemia; I48.0 Paroxysmal atrial fibrillation; K40.20 Bilateral inguinal hernia, without obstruction or gangrene, not specified as recurrent; N18.2 Chronic kidney disease, stage 2 (mild); L40.9 Psoriasis, unspecified; Z85.038 Personal history of other malignant neoplasm of large intestine; Z92.21 Personal history of antineoplastic chemotherapy; Z91.81 History of falling; N20.0 Calculus of kidney; Z79.899 Other long term (current) drug therapy; K80.20 Calculus of gallbladder without cholecystitis without obstruction; Z91.19 Patient's noncompliance with other medical treatment and regimen; Z90.5 Acquired absence of kidney; Z90.49 Acquired absence of other specified parts of digestive tract; Z86.73 Personal history of transient ischemic attack (TIA), and cerebral infarction without residual deficits
CPT/HCPCS: 36415; 36569; 36600; 70030-TC; 70450; 71010; 82105; 82378; 82746; 82784; 83550; 83605; 83615; 83735; 84100; 84153; 84155; 84165; 84443; 85025; 85610; 85730; 86301; 86334; 86706; 86803; 86850; 86900; 86901; 86920; 87040; 87070; 87077; 87086; 87340; 87806; 93005; 94002; 94003; 94640; A4217; A4663; C1751; C9113; J1170; J2185; J2248; J2274; J2354; J2370; J3370; J3430; J3475; J3490; J7030; J7042; J7050; J7060; P9016-BL; P9017-BL; P9021; P9035-BL